=== PATIENT | female | born 1945 | race Caucasian/White ===

== ENCOUNTER 2016-12-30 18:34 | Inpatient (IN) | payer MEDICARE, OTHER ==
--- NOTE | ~2016-12-30 | DS ---
Unit #: [id number] #: [id number] Patient: BERENICE MUÑIZ [id number] [address] [place], [place] [address] [id number] I MR#: [id number] NAME: BERENICE MUÑIZ. ROOM: 324 Age: 71 Sex: F Admission Date: 12/30/2016 : 1945 Discharge Date: 01/06/2017 Attending Physician: Winston Bernal M.D. Referring Physician: Christine Greenfield A.P.R.N. Primary Care Physician: Christine Greenfield A.P.R.N. DISCHARGE SUMMARY CONSULTING PHYSICIAN Dr. Bowie with GI. CONDITION ON DISCHARGE Stable. FINAL DIAGNOSES 1. Chronic hypoxemic respiratory failure on 3 L nasal cannula at home. 2. Acute exacerbation of chronic obstructive pulmonary disease. 3. Anemia, which is likely chronic. 4. Positive occult blood and was evaluated by Dr. Bowie, although he did not proceed with a colonoscopy. 5. Hyperglycemia, likely steroid induced. DIAGNOSTIC STUDIES LABORATORY: Laboratory data on the day of discharge: CBC revealed a white blood cell count of 14.6, hemoglobin 8.4 which is stable from yesterday, and platelets of 302,000. Sputum culture was collected and still with no growth. Blood cultures x2 are collected with no growth. IMAGING: X-ray of the ribs was done this morning. Per radiology report, no fractures were seen. HOSPITAL COURSE The patient was admitted on December 30, 2016, after coming through the ER with worsening shortness of air and severe trouble breathing accompanied with a cough and chest pain. Cough was productive of yellow sputum. She was already on a steroid taper at home upon admission. Rapid flu in the ER was negative. D-dimer was mildly elevated, so V/Q scan was done. That did not suggest pulmonary embolism. Bilateral lower extremity Dopplers were done that were negative for DVTs. Procalcitonin was low at less than 0.05. The patient was started on IV antibiotics, Zithromax, cefepime. Sputum and blood cultures were obtained, both of which were negative. The patient was also started on IV steroids which have been weaned to p.o. An echo was done on December 31 that revealed an EF of 15% to 20%. She does follow with cardiology. The occult blood came back positive and GI saw the patient on January 02; however, they determined that the patient was a poor surgical candidate for colonoscopy and therefore did not proceed with colonoscopy. Hemoglobin has been stable at 8.4 for the last two days and was 8.1 on admission. GI signed off on January 04. Yesterday on January 05, the patient apparently fall into the handrail in the bathroom and was having some right-sided chest pain. An x-ray was done of her ribs to rule out fracture and per radiology reading, there were no fractures noted on x-ray. The patient will now be discharged today on p.o. prednisone Unit #: [id number] #: [id number] Patient: BERENICE MUÑIZ taper. PHYSICAL EXAMINATION VITAL SIGNS: On day of discharge, temperature was 97.8, heart rate 78, respirations 22, blood pressure 160/85, oxygen saturation is 100% on 3 L nasal cannula which is her home amount of O2. GENERAL: The patient is in no acute distress, sitting up in the bed. NEUROLOGIC: She is awake, alert and oriented x3. HEENT: Without adenopathy and without JVD. LUNGS: Have mild expiratory wheezing and rhonchi; however, respirations are unlabored. CARDIOVASCULAR: Regular rate and rhythm. ABDOMEN: Soft, round, nontender with positive bowel sounds. EXTREMITIES: Without edema. SKIN: Without lesions or rashes. DISCHARGE MEDICATIONS The patient will be sent home on a prednisone taper. DISCHARGE INSTRUCTIONS We would like the patient to follow up with her PCP on Tuesday to have her blood pressure checked, to check a H and H, and to follow up with her blood sugar which has likely been elevated due to steroids. We would also like for her to follow up with us in our office in approximately three weeks. If anything changes, then she has been instructed to call prior to that. We have also instructed her to go ahead and make another followup appointment with Dr. Kong which she missed while she has been hospitalized this week. Dictated byCharlie Rangel APRN AT/dede TD: 01/07/2017 09:48 JOB #: [id number] DISCHARGE SUMMARY X Abby GALLAGHER SUMMARY
--- NOTE | ~2016-12-30 | US84 ---
[id number] [facility] [address] [place], [place] [address] [id number] I MR#: [id number] Acc #: [id number] NAME: BERENICE MUÑIZ : 1945 SEX: F STUDY DATE/TIME: 12/31/2016 9:10 UNIT: C3A PCU ROOM: 324 STUDY DESCRIPTION: US LE Veins Complete Rick Stdy Attending Physician: Winston Bernal M.D. Referring Physician: Christine Greenfield A.P.R.N. Ordering Physician: Winston Bernal M.D. Primary Care Physician: Christine Greenfield A.P.R.N. MEDICAL IMAGING REPORT This report is preliminary unless electronic signature is present EXAM Venous Doppler ultrasound, both legs, 12/31/2016 HISTORY 71-year-old female with pulmonary emphysema and chronic shortness of air, recently worsening. Now with hypotension. TECHNIQUE Venous ultrasound examination of both lower extremities was performed using grayscale, spectral Doppler and color flow Doppler imaging. FINDINGS The examination is negative. There is no evidence of deep venous thrombus from the groin to the lower calf bilaterally. Visualized greater saphenous veins are also patent. IMPRESSION Negative examination. No evidence of bilateral lower extremity deep venous thrombosis. Dictated by... Drake Vallecillo M.D. THIS IS AN ELECTRONICALLY VERIFIED REPORT Drake Vallecillo M.D. at 12/31/2016 4:53 PM Lakshmi TD: 12/31/2016 12:58 JOB #: [id number] MEDICAL IMAGING REPORT COPY
--- NOTE | ~2016-12-30 | CR72 ---
[facility] A Service of [facility] & [facility] RADIOLOGY TEXT RESULTS PATIENT: BERENICE MUÑIZ LOCATION: [facility] 324-01 : [birth year] UNIT #: [id number] AGE: [address]: Adan Bernal MD SEX: F ORDER DR: [id number] [facility] [address] [place], [place] [address] [id number] E MR#: [id number] Acc #: [id number] NAME: BERENICE MUÑIZ. : 1945 SEX: F STUDY DATE/TIME: 12/30/2016 18:26 UNIT: [facility] ROOM: STUDY DESCRIPTION: CR Chest Single View Portable Attending Physician: Christine Velazquez M.D. Referring Physician: Christine Greenfield A.P.R.N. Ordering Physician: Christine Velazquez M.D. Primary Care Physician: Christine Greenfield A.P.R.N. MEDICAL IMAGING REPORT This report is preliminary unless electronic signature is present EXAM Portable chest. DATE OF EXAM 12/30/2016 HISTORY 71-year-old female with shortness of air and cough today. COMPARISON Chest, 11/10/2016. FINDINGS Frontal chest demonstrates clear lungs. No pleural effusion or pneumothorax. Heart size and mediastinum within normal limits. Pulmonary vasculature is unremarkable. Small hiatal hernia. IMPRESSION No acute cardiopulmonary findings. Small hiatal hernia. Dictated by... Ruben Bucio M.D. THIS IS AN ELECTRONICALLY VERIFIED REPORT Ruben Bucio M.D. at 12/31/2016 9:19 AM ZITA/sathya TD: 12/30/2016 23:52 JOB #: [id number] MEDICAL IMAGING REPORT COPY
--- NOTE | ~2016-12-30 | CO ---
Unit #: [id number] #: [id number] Patient: BERENICE MUÑIZ [id number] [address] [place], [place] [address] [id number] I MR#: [id number] NAME: BERENICE MUÑIZ ROOM: 324 Age: 71 Sex: F Admission Date: 12/30/2016 : 1945 Attending Physician: Winston Bernal M.D. Primary Care Physician: Christine Greenfield A.P.R.N. Consultation Date: 01/02/2017 CONSULTATION REPORT REASON FOR CONSULTATION Possible gastrointestinal bleed. HISTORY OF PRESENT ILLNESS Ms. Harris is a 71-year-old white female. She is quite frail and has severe COPD. The patient was admitted with acute exacerbation of COPD and upon admission, also found to have anemia. She is currently getting packed cell transfusions. The patient denies any history of overt GI bleed in the form of hematemesis, melena, or hematochezia, but her stool studies are positive for occult blood. It is noteworthy that she had an upper endoscopy for dysphagia about 3 weeks ago. She denies any history of weight loss. There is no history of fever, chills, or rigors. PAST MEDICAL HISTORY Significant for history of COPD; congestive heart failure; chronic anemia, status post chemo and radiation treatments; degenerative disk disease; osteoporosis with compression fractures; chronic respiratory failure, on 2 L nasal cannula. PAST SURGICAL HISTORY Included a kyphoplasty, right knee surgery, cataract extraction surgery, carpal tunnel release surgery, hysterectomy, bladder suspension repair, breast lumpectomy, and spinal fusions. MEDICATIONS At home included the following; Celexa, Flexeril, Lasix, metoprolol, Neurontin, Daliresp, Col-Rite, vitamin D, Singulair, Zyban, prednisone taper, lidocaine topical patch, Combivent, Pulmicort, Perforomist, [place], Humibid, Zestril, Zofran, Aldactone, Lipitor, pantoprazole, Flomax, Bactrim daily. ALLERGIES To morphine and ciprofloxacin. SOCIAL HISTORY The patient quit smoking about 5 years ago. Used to have more than 100 elle-peik-lrmswmd of smoking. Does not drink any alcohol. She walks around with a walker. Lives at home with her . FAMILY HISTORY There is history of lung disease in other siblings. There is no family history of colon, pancreatic cancer, or liver disease. REVIEW OF SYSTEMS Unit #: [id number] #: [id number] Patient: BERENICE MUÑIZ A Detailed review of organ systems does not reveal any recent weight loss. No history of fever, chills, or rigors. No history of headache, seizures, chest pain, or syncope. There is history of shortness of breath and cough, but no expectoration. No history of dysuria, hematuria, or pyuria. No history of focal seizures or extremity weakness. Rest of the review of organ systems is unremarkable. PHYSICAL EXAMINATION GENERAL: She is alert and oriented, and comfortable. VITAL SIGNS: Stable with a temperature of 97.6, pulse is 75 per minute and regular, respirations 20, and blood pressure is 150/65. HEENT: She has zvny-lq-tcqthtfm pallor. There being no icterus, lymphadenopathy, or peripheral edema. CARDIOVASCULAR: Reveal normal heart sounds. No murmurs on auscultation. LUNGS: Reveal bilateral diminished symmetric air entry along with expiratory wheeze. ABDOMEN: Soft and nontender. Liver and spleen are not palpable. Bowel sounds normal. DIAGNOSTIC STUDIES LABORATORY RESULTS: Shows an admission hemoglobin on 12/30/2016 of 9.4 and today hemoglobin is 7.7. It is noteworthy that the patient's hemoglobin in the past has hovered around 9 at the most. BUN and creatinine are 19 and 1.7. Albumin is 3.2. LFTs are normal. Ferritin is 287. Iron studies were done in 2016 and were suggestive of anemia of chronic disease. B12 and folate levels were normal. The patient's stool studies for occult blood are positive. CLINICAL IMPRESSION The patient does have anemia most likely of chronic disease, even though she has Hemoccult-positive stools and ideally should have a colonoscopy. She has a high surgical risk both for colonoscopy or for any operative intervention. Upper endoscopy was done about a month ago. Suggest to monitor hemoglobin and hematocrit and transfuse packed cells as needed and supportive care. The risk of colonoscopy outweighs its benefits at least for now. We will review the patient again tomorrow. Thank you for asking me to see this pleasant woman. I appreciate the consult. Dictated by.Effie. Raymon Bowie M.D. GEOVANNA/merrick TD: 01/02/2017 21:07 JOB #: [id number] CC: Mark Dominguez M.D. Unit #: [id number] #: [id number] Patient: BERENICE MUÑIZ Tim CONSULTATION REPORT X Raymon Bowie MD X CONSULTATION REPORT
--- NOTE | ~2016-12-30 | CR72 ---
[facility] A Service of [facility] & [facility] RADIOLOGY TEXT RESULTS PATIENT: BERENICE MUÑZI LOCATION: [facility] 324-01 : [birth year] UNIT #: [id number] AGE: [address]: Adan Bernal MD SEX: F ORDER DR: [id number] [facility] [address] [place], [place] [address] [id number] I MR#: [id number] Acc #: [id number] NAME: BERENICE MUÑIZ. : 1945 SEX: F STUDY DATE/TIME: 12/31/2016 03:37 UNIT: [address] ROOM: [facility] STUDY DESCRIPTION: CR Chest Single View Portable Attending Physician: Winston Bernal M.D. Referring Physician: Christine Greenfield A.P.R.N. Ordering Physician: Winston Bernal M.D. Primary Care Physician: Christine Greenfield A.P.R.N. MEDICAL IMAGING REPORT This report is preliminary unless electronic signature is present EXAM Portable chest, 12/31 at 03:37 INDICATION Shortness of air, sepsis, cough, hypotension. History of lung cancer. FINDINGS AP portable chest is compared with 12/30/2016. Cardiomegaly is stable. There is emphysema. No acute infiltrates are identified. Hiatal hernia is again seen. No pneumothorax. Granulomatous calcifications noted in the right paratracheal region. Atherosclerotic disease noted in the aorta. IMPRESSION Cardiomegaly and emphysema with a stable hiatal hernia. No acute findings in the chest. Dictated by... Yan Weldon Jr., M.D. THIS IS AN ELECTRONICALLY VERIFIED REPORT Yan Weldon Jr., M.D. at 01/03/2017 7:20 AM YAAKOV/audrey TD: 12/31/2016 08:27 JOB #: [id number] MEDICAL IMAGING REPORT COPY
--- NOTE | ~2016-12-30 | HP ---
Unit #: [id number] #: [id number] Patient: BERENICE MUÑIZ [id number] [address] [place], [place] [address] [id number] I MR#: [id number] NAME: BERENICE MUÑIZ ROOM: 324 Age: 71 Sex: F Admission Date: 12/30/2016 : 1945 Attending Physician: Winston Bernal M.D. Referring Physician: Christine Greenfield A.P.R.N. Primary Care Physician: Christine Greenfield A.P.R.N. HISTORY AND PHYSICAL HISTORY OF PRESENT ILLNESS This is a pleasant lady who came into the emergency room with worsening shortness of air and severe trouble breathing, coughing, chest pain. She has a history of congestive heart failure. She has a history of COPD. The patient was having a lot of cough productive of yellow sputum. Patient was on Bactrim prior to admitting. She was also on a prednisone taper. She was admitted to the hospital for congestive heart failure. Patient denies fevers, chills, chest pain, leg pain, dizziness, lightheadedness. She did have a history of dizziness and tunnel vision last week but none recently. The patient was placed on cefepime and azithromycin and admitted to the floor. REVIEW OF SYSTEMS A full review of systems is positive for what is in the history of present illness. PAST MEDICAL HISTORY The past medical history is significant for COPD exacerbation, degenerative disc disease, chronic anemia, chemo and radiation treatment by Dr. Cha, osteoporosis with compression fractures, chronic respiratory failure on 2 L nasal cannula. PAST SURGICAL HISTORY Significant for kyphoplasty, right knee surgery, cataract surgery, carpal tunnel surgery, hysterectomy, bladder repair, lumpectomy and spinal fusions. HOME MEDICATIONS Home medications include: 1. Celexa 20 mg daily. 2. Flexeril 10 mg p.o. t.i.d. 3. Lasix 20 mg daily. 4. Metoprolol 25 mg b.i.d. 5. Neurontin 300 mg b.i.d. 6. Daliresp 500 mcg daily. 7. Col-Rite 100 mg daily. 8. Vitamin D 50,000 unit daily. 9. Singulair 10 mg daily. 10. Zyban 150 mg b.i.d. 11. Prednisone 10 mg daily on a taper. 12. Lidocaine topical patch 5% daily. 13. Combivent 3 mL inhaled q.i.d. 14. Pulmicort 0.5 mg q.12 h. Unit #: [id number] #: [id number] Patient: BERENICE MUÑIZ 15. Perforomist 20 mcg b.i.d. 16. [place] 10/325 q.6 h. p.r.n. 17. Humibid LA 600 mg p.o. b.i.d. 18. Zestril 5 mg daily. 19. Zofran 4 mg q.4 h. p.r.n. 20. Aldactone 25 mg daily. 21. Combivent one tablet daily. 22. Lipitor daily. 23. Pantoprazole sodium 40 mg daily. 24. Flomax 0.4 mg daily. 25. Omeprazole 20 mg b.i.d. 26. Bactrim tablet one tablet daily. PHYSICAL EXAMINATION VITAL SIGNS: T-current 98.6, pulse 88, respiratory rate 20, blood pressure 135/73. Ins and outs 375 in, not recorded out. HEENT: Extraocular movements are intact. Pupils equal, round and reactive to light. NECK: Shows no accessory muscle use, approximately 17 inches in circumference. CHEST: Decreased breath sounds bilaterally. CARDIOVASCULAR EXAM: Regular rate and there is no gallop. EXTREMITIES: The extremities show kind of decreased pulses both in radial and DP and PT. ABDOMEN: Abdomen is soft, nontender and nondistended. DIAGNOSTIC STUDIES IMAGING: Bilateral lower extremities negative examination for DVT bilaterally. V/Q scan is low to intermediate probability with significant emphysema. LABORATORY: D-dimer is positive at 800. BNP is 59. Procalcitonin is less than 0.05. Lactic acid is 0.9. Urinalysis 2+ leukocyte esterase. IMAGING: Chest x-ray shows no acute cardiopulmonary findings. ASSESSMENT AND PLAN Treat for chronic obstructive pulmonary disease exacerbation. Patient I think is probably dry rather than wet at this time so we are going to encourage her p.o. Patient was on IV fluid but we are going to discontinue it and we are going to do no fluid restrictions and we are holding her diuretics for another day to begin again tomorrow. Dictated by Winston Bernal M.D. SARAHI/clark TD: 12/31/2016 21:31 JOB #: [id number] Unit #: [id number] #: [id number] Patient: BERENICE MUÑIZ HISTORY AND PHYSICAL X Adan Bernal MD X HISTORY AND PHYSICAL
--- NOTE | ~2016-12-30 | CR211 ---
[facility] A Service of [facility] RADIOLOGY TEXT RESULTS PATIENT: BERENICE MUÑIZ LOCATION: [facility] 324- : [birth year] UNIT #: [id number] AGE: [address]: Adan Bernal MD SEX: F ORDER DR: [id number] [facility] [address] [place], [place] [address] [id number] I MR#: [id number] Acc #: [id number] NAME: BERENICE MUÑIZ : 1945 SEX: F STUDY DATE/TIME: 01/06/2017 7:52 UNIT: [address] ROOM: [facility] STUDY DESCRIPTION: CR Ribs Uni 2 View W PA Ch Rt Attending Physician: Winston Bernal M.D. Referring Physician: Christine Greenfield A.P.R.N. Ordering Physician: Winston Bernal M.D. Primary Care Physician: Christine Greenfield A.P.R.N. MEDICAL IMAGING REPORT This report is preliminary unless electronic signature is present EXAM PA chest and right ribs HISTORY Pain in right lower rib 2 days ago, fell in bathroom. TECHNIQUE An AP view of the chest and AP and oblique of the right ribs are obtained. FINDINGS Chest radiograph shows cardiac enlargement. AP and oblique views of the right ribs show marked osteopenia. No definite fracture is seen. CONCLUSION Stable cardiomegaly. Osteopenia and no definite fractures. Dictated by... Sacha Schofield M.D. THIS IS AN ELECTRONICALLY VERIFIED REPORT Sacha Schofield M.D. at 01/12/2017 7:58 AM KRYSTLE/dontrell TD: 01/06/2017 12:13 JOB #: [id number] MEDICAL IMAGING REPORT COPY
--- NOTE | ~2016-12-30 | EKG ---
PATIENT: BERENICE MUÑIZ UNIT #: [id number] Ventricular Rate: 76 BPM Atrial Rate: 76 BPM P-R Interval: 150 ms QRS Duration: 94 ms Q-T Interval: 424 ms QTC Calculation(Bezet): 477 ms P Holland: 14 degrees Calculated R Holland: 21 degrees Calculated T Holland: 108 degrees Diagnosis Line: Sinus rhythm with occasional Premature ventricular Diagnosis Line: complexes Diagnosis Line: ST and T wave abnormality, consider lateral ischemia Diagnosis Line: Prolonged QT Diagnosis Line: Abnormal ECG Diagnosis Line: When compared with ECG of 01-NOV-2016 12:16, Diagnosis Line: Premature ventricular complexes are now Present Diagnosis Line: T wave inversion less evident in Anterior leads Diagnosis Line: Confirmed by UMAIR TIRADO MD ([id number]) on 12/31/2016 Diagnosis Line: 5:16:10 PM INTERPRETING MD: CELESTINO KELSEY
--- NOTE | ~2016-12-30 | NM69 ---
[facility] A Service of [facility] RADIOLOGY TEXT RESULTS PATIENT: BERENICE MUÑIZ LOCATION: [facility] 324-01 : [birth year] UNIT #: [id number] AGE: [address]: Adan Bernal MD SEX: F ORDER DR: [id number] [facility] [address] [place], [place] [address] [id number] I MR#: [id number] Acc #: [id number] NAME: BERENICE MUÑIZ. : 1945 SEX: F STUDY DATE/TIME: 12/31/2016 11:11 UNIT: [address] ROOM: [facility] STUDY DESCRIPTION: NM Pulm Vent and Perf Attending Physician: Winston Bernal M.D. Referring Physician: Christine Greenfield A.P.R.N. Ordering Physician: Winston Bernal M.D. Primary Care Physician: Christine Greenfield A.P.R.N. MEDICAL IMAGING REPORT This report is preliminary unless electronic signature is present EXAM Ventilation-perfusion lung scan, 12/31/2016 HISTORY 71-year-old female with several month history of shortness of air, now with sepsis, decreased blood pressure. Prior history of lung cancer. DOSE 29.5 mCi Technetium labeled DTPA inhaled in aerosol. 4.88 mCi Technetium labeled MAA administered intravenously. COMPARISON No previous radionuclide lung scans. CT chest, 07/27/2016. Chest x-ray, 12/31/2016. FINDINGS Ventilation images show extensive multifocal abnormality throughout both lungs compatible with the patient's history of diffuse pulmonary emphysema, best demonstrated on the prior chest CT. Perfusion images show significantly less severe multifocal abnormalities, and these correspond with more severe abnormalities on ventilation scan. No unmatched perfusion defect is identified to suggest pulmonary embolism. However, the accuracy of the test is likely significantly decreased due to the patient's diffuse lung disease. IMPRESSION 1. Severe diffuse pulmonary emphysema causing diffuse abnormality, particularly on ventilation images. This reduces the accuracy of this exam. 2. No unmatched perfusion defect is identified to suggest pulmonary embolism. Findings are felt to represent a low probability of PE. [facility] A Service of [facility] RADIOLOGY TEXT RESULTS PATIENT: BERENICE MUÑIZ LOCATION: [facility] 324-01 : [birth year] UNIT #: [id number] AGE: [address]: Adan Bernal MD SEX: F ORDER DR: STAT * RESULT Dictated by... Drake Vallecillo M.D. THIS IS AN ELECTRONICALLY VERIFIED REPORT Drake Vallecillo M.D. at 12/31/2016 4:53 PM Lakshmi TD: 12/31/2016 11:13 JOB #: [id number] MEDICAL IMAGING REPORT COPY
--- NOTE | ~2016-12-30 | CR63 ---
[facility] A Service of [facility] & [facility] RADIOLOGY TEXT RESULTS PATIENT: BERENICE MUÑIZ LOCATION: [facility] 324- : [birth year] UNIT #: [id number] AGE: [address]: Adan Bernal MD SEX: F ORDER DR: [id number] [facility] [address] [place], [place] [address] [id number] I MR#: [id number] Acc #: [id number] NAME: BERENICE MUÑIZ. : 1945 SEX: F STUDY DATE/TIME: 01/05/2017 7:32 UNIT: [address] ROOM: [facility] STUDY DESCRIPTION: CR Chest 2 View Attending Physician: Adan Bernal Referring Physician: Christine Greenfield A.P.R.N. Ordering Physician: Adan Bernal Primary Care Physician: Christine Greenfield A.P.R.N. MEDICAL IMAGING REPORT This report is preliminary unless electronic signature is present EXAM PA and lateral chest. HISTORY Cough and shortness of air for six days. COMPARISON 12/31/2016 FINDINGS PA and lateral view of the chest were obtained. There are low lung volumes and the patient is kyphotic. There is a mid thoracic spine compression fracture which is unchanged from 11/06/2016. The lungs are clear. IMPRESSION Kyphosis with old mid thoracic spine compression fracture. No active disease. Dictated by... Irineo Guerrero M.D. THIS IS AN ELECTRONICALLY VERIFIED REPORT Irineo Guerrero M.D. at 01/05/2017 2:05 PM ELIJAH/norman TD: 01/05/2017 11:00 JOB #: [id number] MEDICAL IMAGING REPORT COPY
[2016-12-30 18:31] LABS: BASOPHIL% 0.3 % (0-2.5); EOSINOPHIL# 0.2 X10e3 (0-0.7); EOSINOPHIL% 2.5 % (0.0-7.0); HEMATOCRIT 28.9 % (35.0-45.0); HEMOGLOBIN 9.4 gm/dL (12.0-16.0); LYMPHOCYTE# 2.8 X10e3 (1.0-3.5); MEAN CELL VOLUME 84.1 FL (83-96); MEAN CORPUSCULAR HEMOGLOBIN 27.3 PG (28-34); MEAN CORPUSCULAR HGB CONC 32.4 g/dL (30-36); MEAN PLATELET VOLUME 7.1 FL (6.5-11.5); MONOCYTE% 10.2 % (3.0-12.0); NEUTROPHIL# 5.7 X10e3 (1.5-7.1); PLATELET COUNT 435 X10e3 (140-420); RED BLOOD COUNT 3.44 X10e (3.90-5.30); RED CELL DISTRIBUTION WIDTH 18.5 % (11.0-15.5); WHITE BLOOD COUNT 9.8 X10e3 (4.0-10.5)
[2016-12-30 18:32] LABS: DIFF IND NO
[2016-12-30 18:34] LABS: POC - CKMB 1.1 ng/mL (0.0-7.9); POC - TROPONIN <0.05 ng/mL (<=0.05)
[~2016-12-30 18:34] MED LIST: ACTONEL PO; ACTONEL30 MG PO; ADVAIR 250-501 EACH INH; ADVAIR 500-501 EACH IH; ADVAIR 5001 DISK W/D PO; ALB/IPRATROPIUM/1 E1 INH; ALBUTEROL17 GM INH; AMLODIPINE BESYL5 MG PO; AMOXICILLIN875 MG PO; AZITHROMYCIN500 MG PO; CALCIUM500 MG PO; CEFACLOR250 MG PO; CEFDINIR300 MG PO; CELEBREX PO; CELEXA PO; CELEXA20 MG PO; CERTAGEN PO; CITALOPRAM HBR40 MG PO; COL-RITE50 MG PO; COLACE PO; COMBIVENT INH14.7 GM INH; COMBIVENT INHALER; COMBIVENT RESPIM4 GM IH; COMBIVENT U/D3 M1 INH; COMBIVENT U/D3 M4 INH; COMBIVENT14.7 GM INH; DALIRESP500 MCG PO; DEXAMETHASONE4 MG PO; DUONEB 2.5-0.5 M3 ML NEB; DYAZIDE 37.5/251 CAP PO; FELDENE20 MG PO; FISH OIL 1,0001 CAP PO; FLAGYL PO; FLEXERIL PO; FLEXERIL10 MG PO; FLONASE 0.05% N16 GM; FLONASE16 GM; FLOVENT DI50 MCG/DIS IH; GABAPENTIN300 M2 PO; HUMIBID-LA600 MG PO; IBUPROFEN800 MG PO; LASIX PO; LASIX20 MG PO; LEVAQUIN PO; LEVAQUIN750 MG PO; LIDOCAINE 5% TOP; LIDODERM30 EA TOP; LIPITOR PO; LORTAB 101 TAB 10/5 PO; LOVASTATIN20 M1 PO; MAXZIDE 37.5 M1 EACH PO; METAXALONE800 MG PO; METHOCARBAMOL500 MG PO; METOPROLOL TAR25 MG PO; METOPROLOL TART25 MG PO; MEVACOR PO; MONTELUKAST SOD10 MG PO; MUCINEX D ER T1 EACH PO; MUCINEX DM1 TAB.SR . PO; MULTIVITAMIN1 UDCAP PO; NEURONTIN300 MG PO; NEXIUM 24HR20 MG PO; NEXIUM PO; NICOTROL INH; NILSTAT PO; NORCO 10-325 TA1 TAB PO; NORCO1 TAB 10/3 PO; NORVASC PO; NORVASC10 MG PO; OMEPRAZOLE20 M2 PO; OMEPRAZOLE40 M1 PO; OMEPRAZOLE40 MG PO; OMNICEF300 M1 PO; PERCOCET 5/321 UDTAB PO; PERCOCET PO; PERFOROMIS20 MCG/2 M INH; PREDNISONE PO; PREDNISONE1 MG PO; PREDNISONE10 MG PO; PREDNISONE10 MG/DOSE PO; PULMICORT0.5 MG/2 M INH; SINGULAIR PO; SYMBICORT INH; TRIAMTERENE-HCT1 TA6 PO; TRIAMTERENE-HCT1 TA8 PO; TUDORZA PRESS400 MCG IH; VENTOLIN INHALER; VIBRAMYCIN100 M1 PO; VITAMIN C500 M1 PO; VITAMIN D250000 UNIT PO; VITAMIN D50000 UNIT PO; WELLBUTRIN PO; WELLBUTRIN SR150 MG PO; WELLBUTRIN XL PO; WELLBUTRIN XL150 M1 PO; ZESTRIL5 MG PO; ZOFRAN PO; hydrocodone
[2016-12-30 18:41] LABS: INFLUENZA A NEG (NEG); INFLUENZA B NEG (NEG)
[2016-12-30 18:58] LABS: BUN/CREATININE RATIO 11.17; CALCIUM SERUM 8.7 mg/dL (8.4-10.2); CREATININE SERUM 1.7 mg/dL (0.6-1.4); GLOM FILT RATE Estimated 31.7 mL/min (>60); POTASSIUM 3.6 mmol/L (3.5-5.1)
[2016-12-30] MEDS ORDERED: ALDACTONE25 MG PO (19:29)
[2016-12-30] MEDS ORDERED: COMBIVENT U/D3 ML INH (19:30)
[2016-12-30] MEDS ORDERED: LIPITOR PO (19:30)
[2016-12-30] MEDS ORDERED: OMEPRAZOLE20 M2 PO (19:31)
[2016-12-30] MEDS ORDERED: PANTOPRAZOLE SO40 MG PO (19:31)
[2016-12-30] MEDS ORDERED: FLOMAX0.4 M1 PO (19:31)
[2016-12-30] MEDS ORDERED: BACTRIM DS TABL1 TA1 PO (19:32)
[2016-12-30 20:17] LABS: URINE SOURCE CLEAN CATCH
[2016-12-30 20:38] LABS: URINE APPEARANCE CLEAR; URINE BILIRUBIN NEG (NEG); URINE BLOOD NEG (NEG); URINE COLOR YELLOW; URINE GLUCOSE NEG (NEG); URINE KETONE TRACE (NEG); URINE LEUKOCYTE ESTERASE 2+ (NEG); URINE NITRATE NEG (NEG); URINE PH 5.5 (5-8); URINE PROTEIN NEG (NEG); URINE UROBILINOGEN 0.2 MG/DL (NEG)
[2016-12-30 20:44] LABS: U HYALINE CASTS AUWI 0-2 /[LPF]; URBCS1 AUWI 0-2 /[HPF] (0-2); URINE BACTERIA AUWI NEG (NEGATIVE); URINE SQUAMOUS EPITHELIAL CELL OCC /[HPF]
[2016-12-30 20:50] LABS: UWBCS1 AUWI 0-2 (0-5)
[2016-12-30 20:51] LABS: CULTURE INDICATED? NO
[2016-12-30 22:59] LABS: POC - CKMB <1.0 ng/mL (0.0-7.9); POC - TROPONIN <0.05 ng/mL (<=0.05)
[2016-12-31 03:53] LABS: BASOPHIL% 0.2 % (0-2.5); HEMATOCRIT 24.9 % (35.0-45.0); HEMOGLOBIN 8.1 gm/dL (12.0-16.0); LYMPHOCYTE# 0.3 X10e3 (1.0-3.5); LYMPHOCYTE% 6.6 % (17.0-45.0); MEAN CELL VOLUME 85.2 FL (83-96); MEAN CORPUSCULAR HEMOGLOBIN 27.5 PG (28-34); MEAN CORPUSCULAR HGB CONC 32.3 g/dL (30-36); MEAN PLATELET VOLUME 7.1 FL (6.5-11.5); MONOCYTE# 0.1 X10e3 (0-1.0); NEUTROPHIL# 4.8 X10e3 (1.5-7.1); NEUTROPHIL% 92.2 % (40-75); PLATELET COUNT 339 X10e3 (140-420); RED BLOOD COUNT 2.93 X10e (3.90-5.30); WHITE BLOOD COUNT 5.2 X10e3 (4.0-10.5)
[2016-12-31 03:59] LABS: DIFF IND NO
[2016-12-31 04:17] LABS: ALBUMIN SERUM 3.2 g/dL (3.5-5.0); BILIRUBIN,TOTAL 0.2 mg/dL (0.2-2.0); BUN/CREATININE RATIO 16.66; CREATININE SERUM 1.2 mg/dL (0.6-1.4); GLOM FILT RATE Estimated 47.3 mL/min (>60); POTASSIUM 4.7 mmol/L (3.5-5.1); PROTEIN TOTAL SERUM 5.6 g/dL (6.0-8.3)
[2016-12-31] MEDS ORDERED: ZOFRAN PO (04:44)
[2016-12-31] MEDS ORDERED: PRILOSEC PO (04:48)
[2016-12-31] MEDS ORDERED: GUAIFENESIN LA600 M1 PO (04:56)
[2016-12-31] MEDS ORDERED: NORCO 10/3251 TAB PO (05:06)
[2016-12-31] MEDS ORDERED: PERFOROMIS20 MCG/2 M INH (05:08)
[2016-12-31] MEDS ORDERED: PULMICORT0.5 MG/21 INH (05:11)
[2016-12-31] MEDS ORDERED: LISINOPRIL5 MG PO (05:13)
[2016-12-31] MEDS ORDERED: ALB/IPRATROPIUM/1 EA INH (05:17)
[2016-12-31] MEDS ORDERED: LIDODERM30 EA TOP (05:19)
[2016-12-31] MEDS ORDERED: SINGULAIR PO (05:21)
[2016-12-31] MEDS ORDERED: BUPROPION XL150 MG PO (05:23)
[2016-12-31] MEDS ORDERED: DOCUSATE SODIU100 MG PO (05:24)
[2016-12-31] MEDS ORDERED: DALIRESP500 MCG PO (05:26)
[2016-12-31] MEDS ORDERED: METOPROLOL TAR25 MG PO (05:27)
[2016-12-31] MEDS ORDERED: GABAPENTIN300 M2 PO (05:28)
[2016-12-31] MEDS ORDERED: CELEXA20 MG PO (05:29)
[2016-12-31] MEDS ORDERED: FLEXERIL10 MG PO (05:30)
[2016-12-31] MEDS ORDERED: FUROSEMIDE40 MG/4 ML PO (05:31)
[2017-01-01 05:55] LABS: BASOPHIL% 0.1 % (0-2.5); HEMATOCRIT 24.7 % (35.0-45.0); LYMPHOCYTE# 0.8 X10e3 (1.0-3.5); MEAN CELL VOLUME 84.2 FL (83-96); MEAN CORPUSCULAR HEMOGLOBIN 27.3 PG (28-34); MEAN CORPUSCULAR HGB CONC 32.5 g/dL (30-36); MEAN PLATELET VOLUME 7.5 FL (6.5-11.5); MONOCYTE# 0.3 X10e3 (0-1.0); NEUTROPHIL# 9.9 X10e3 (1.5-7.1); NEUTROPHIL% 89.9 % (40-75); PLATELET COUNT 347 X10e3 (140-420); RED BLOOD COUNT 2.93 X10e (3.90-5.30); RED CELL DISTRIBUTION WIDTH 18.4 % (11.0-15.5)
[2017-01-01 05:59] LABS: DIFF IND NO
[2017-01-01 06:33] LABS: CALCIUM SERUM 8.1 mg/dL (8.4-10.2); GLOM FILT RATE Estimated 58.4 mL/min (>60); POTASSIUM 5.2 mmol/L (3.5-5.1)
[2017-01-02 06:01] LABS: HEMATOCRIT 23.8 % (35.0-45.0); HEMOGLOBIN 7.7 gm/dL (12.0-16.0); MEAN CELL VOLUME 84.3 FL (83-96); MEAN CORPUSCULAR HEMOGLOBIN 27.3 PG (28-34); MEAN CORPUSCULAR HGB CONC 32.4 g/dL (30-36); MEAN PLATELET VOLUME 7.3 FL (6.5-11.5); RED BLOOD COUNT 2.82 X10e (3.90-5.30); RED CELL DISTRIBUTION WIDTH 18.8 % (11.0-15.5)
[2017-01-02 06:38] LABS: BLOOD UREA NITROGEN 27 mg/dL (9-23); CALCIUM SERUM 8.6 mg/dL (8.4-10.2); CARBON DIOXIDE 27 mmol/L (22-31); CHLORIDE 103 mmol/L (100-111); CREATININE SERUM 0.9 mg/dL (0.6-1.4); GLOM FILT RATE Estimated ABOVE60 mL/min (>60); GLUCOSE FASTING 123 mg/dL (70-110); POTASSIUM 3.7 mmol/L (3.5-5.1); SODIUM 138 mmol/L (135-145)
[2017-01-03 06:14] LABS: HEMATOCRIT 31.3 % (35.0-45.0); MEAN CELL VOLUME 85.7 FL (83-96); MEAN CORPUSCULAR HEMOGLOBIN 27.5 PG (28-34); MEAN PLATELET VOLUME 7.8 FL (6.5-11.5); RED BLOOD COUNT 3.65 X10e (3.90-5.30); RED CELL DISTRIBUTION WIDTH 18.2 % (11.0-15.5)
[2017-01-03 07:12] LABS: ALBUMIN SERUM 3.5 g/dL (3.5-5.0); ALKALINE PHOSPHATASE 46 U/L (32-92); ALT (SGPT) 15 U/L (10-40); AST (SGOT) 17 U/L (10-42); BILIRUBIN,TOTAL 0.4 mg/dL (0.2-2.0); BLOOD UREA NITROGEN 26 mg/dL (9-23); CALCIUM SERUM 8.7 mg/dL (8.4-10.2); CARBON DIOXIDE 24 mmol/L (22-31); CHLORIDE 102 mmol/L (100-111); CREATININE SERUM 0.8 mg/dL (0.6-1.4); GLOM FILT RATE Estimated ABOVE60 mL/min (>60); GLUCOSE FASTING 146 mg/dL (70-110); POTASSIUM 3.4 mmol/L (3.5-5.1); PROTEIN TOTAL SERUM 6.2 g/dL (6.0-8.3); SODIUM 138 mmol/L (135-145)
[2017-01-04 08:57] LABS: HEMATOCRIT 27.8 % (35.0-45.0); HEMOGLOBIN 9.2 gm/dL (12.0-16.0); MEAN CELL VOLUME 85.2 FL (83-96); MEAN CORPUSCULAR HEMOGLOBIN 28.2 PG (28-34); MEAN CORPUSCULAR HGB CONC 33.2 g/dL (30-36); MEAN PLATELET VOLUME 7.6 FL (6.5-11.5); RED BLOOD COUNT 3.27 X10e (3.90-5.30); RED CELL DISTRIBUTION WIDTH 17.8 % (11.0-15.5); WHITE BLOOD COUNT 9.2 X10e3 (4.0-10.5)
[2017-01-04 09:43] LABS: ALBUMIN SERUM 3.4 g/dL (3.5-5.0); ALKALINE PHOSPHATASE 42 U/L (32-92); ALT (SGPT) 18 U/L (10-40); AST (SGOT) 15 U/L (10-42); BILIRUBIN,TOTAL 0.1 mg/dL (0.2-2.0); BLOOD UREA NITROGEN 21 mg/dL (9-23); CALCIUM SERUM 8.7 mg/dL (8.4-10.2); CARBON DIOXIDE 28 mmol/L (22-31); CHLORIDE 102 mmol/L (100-111); CREATININE SERUM 0.5 mg/dL (0.6-1.4); GLOM FILT RATE Estimated ABOVE60 mL/min (>60); GLUCOSE FASTING 99 mg/dL (70-110); POTASSIUM 3.7 mmol/L (3.5-5.1); PROTEIN TOTAL SERUM 5.4 g/dL (6.0-8.3); SODIUM 137 mmol/L (135-145)
[2017-01-05 05:58] LABS: HEMATOCRIT 26.2 % (35.0-45.0); HEMOGLOBIN 8.4 gm/dL (12.0-16.0); MEAN CELL VOLUME 85.4 FL (83-96); MEAN CORPUSCULAR HEMOGLOBIN 27.5 PG (28-34); MEAN CORPUSCULAR HGB CONC 32.2 g/dL (30-36); MEAN PLATELET VOLUME 7.4 FL (6.5-11.5); RED BLOOD COUNT 3.07 X10e (3.90-5.30); RED CELL DISTRIBUTION WIDTH 17.9 % (11.0-15.5); WHITE BLOOD COUNT 11.9 X10e3 (4.0-10.5)
[2017-01-05 07:09] LABS: ALBUMIN SERUM 2.9 g/dL (3.5-5.0); ALKALINE PHOSPHATASE 38 U/L (32-92); ALT (SGPT) 16 U/L (10-40); AST (SGOT) 13 U/L (10-42); BILIRUBIN,TOTAL 0.5 mg/dL (0.2-2.0); BLOOD UREA NITROGEN 22 mg/dL (9-23); BUN/CREATININE RATIO 31.42; CALCIUM SERUM 8.5 mg/dL (8.4-10.2); CARBON DIOXIDE 28 mmol/L (22-31); CHLORIDE 102 mmol/L (100-111); CREATININE SERUM 0.7 mg/dL (0.6-1.4); GLOM FILT RATE Estimated ABOVE60 mL/min (>60); GLUCOSE FASTING 109 mg/dL (70-110); IRON SERUM 21 ug/dL (28-170); POTASSIUM 4.4 mmol/L (3.5-5.1); PROTEIN TOTAL SERUM 4.8 g/dL (6.0-8.3); SODIUM 136 mmol/L (135-145); TOTAL IRON BINDING CAPACITY 243 ug/dL (269-535); TRANSFERRIN 174 mg/dL (192-382); TRANSFERRIN SATURATION 9 % (20-50)
[2017-01-06 06:41] LABS: HEMATOCRIT 26.2 % (35.0-45.0); HEMOGLOBIN 8.4 gm/dL (12.0-16.0); MEAN CELL VOLUME 85.2 FL (83-96); MEAN CORPUSCULAR HEMOGLOBIN 27.2 PG (28-34); MEAN CORPUSCULAR HGB CONC 31.9 g/dL (30-36); MEAN PLATELET VOLUME 7.3 FL (6.5-11.5); RED BLOOD COUNT 3.08 X10e (3.90-5.30); RED CELL DISTRIBUTION WIDTH 18.1 % (11.0-15.5); WHITE BLOOD COUNT 14.6 X10e3 (4.0-10.5)
[2017-01-06] MEDS ORDERED: PREDNISONE10 MG/DOSE (17:56)
[2017-07-30] MEDS ORDERED: PULMICORT0.25 MG/2 INH (21:14)
[2017-07-30] MEDS ORDERED: K-DUR20 ME1 PO (21:15)
[2017-07-30] MEDS ORDERED: VITAMIN D350000 UNIT PO (21:17)
[2017-07-30] MEDS ORDERED: FUROSEMIDE40 MG PO (21:18)
[2017-07-30] MEDS ORDERED: DALIRESP500 MCG PO (21:19)
[2017-07-30] MEDS ORDERED: TUDORZA PRESS400 MCG INH (21:19)
[2017-07-30] MEDS ORDERED: ATORVASTATIN CA10 MG PO (21:20)
[2017-07-30] MEDS ORDERED: WELLBUTRIN XL150 M2 (21:21)
[2017-07-30] MEDS ORDERED: FLEXERIL10 MG PO (21:22)
[2017-07-30] MEDS ORDERED: CELEXA20 MG PO (21:22)
[2017-07-30] MEDS ORDERED: DOCUSATE SODIU100 MG PO (21:23)
[2017-07-30] MEDS ORDERED: NEURONTIN300 MG PO (21:25)
[2017-07-30] MEDS ORDERED: HYDROCODON-ACE1 EAC5 PO (21:27)
[2017-07-30] MEDS ORDERED: LIDODERM1 EACH TD (21:29)
[2017-07-30] MEDS ORDERED: LOPRESSOR PO (21:30)
[2017-07-30] MEDS ORDERED: SINGULAIR PO (21:31)
[2017-07-30] MEDS ORDERED: MUCINEX1200 MG PO (21:32)
[2017-07-30] MEDS ORDERED: PROTONIX40 M1 PO (21:33)
[2017-07-30] MEDS ORDERED: ZOFRAN ODT4 M1 PO (21:33)
[2017-07-30] MEDS ORDERED: FELDENE20 MG PO (21:34)
[2017-07-30] MEDS ORDERED: FLOMAX0.4 M1 DOB (21:34)
[2017-07-30] MEDS ORDERED: PREDNISONE10 MG PO (21:40)
[2017-07-30] MEDS ORDERED: PROAIR RESPICL90 MCG (21:42)
[2017-07-30] MEDS ORDERED: PRILOSEC PO (21:43)
== END 2017-01-07 02:40 | disposition home or self-care (01) | DRG 189 ==
LOC: CED 18:34 → CEDOF 23:35 → C3A PCU 12-31 04:12
PROVIDERS: Emergency Medicine; Internal Medicine Gastroenterology; Internal Medicine Pulmonary Disease
PROC: 30233N1 Transfusion of Nonautologous Red Blood Cells into Peripheral Vein, Percutaneous Approach (ICD-10-PCS; principal; 2016-12-30)
PROC: B246YZZ Ultrasonography of Right and Left Heart using Other Contrast (ICD-10-PCS; 2016-12-31)
DX: J96.21 Acute and chronic respiratory failure with hypoxia (principal); I50.22 Chronic systolic (congestive) heart failure; J44.1 Chronic obstructive pulmonary disease with (acute) exacerbation; D63.8 Anemia in other chronic diseases classified elsewhere; R73.9 Hyperglycemia, unspecified; T38.0X5A Adverse effect of glucocorticoids and synthetic analogues, initial encounter; D50.0 Iron deficiency anemia secondary to blood loss (chronic); Z92.3 Personal history of irradiation; Z92.21 Personal history of antineoplastic chemotherapy; I25.10 Atherosclerotic heart disease of native coronary artery without angina pectoris; Z95.1 Presence of aortocoronary bypass graft; Z90.710 Acquired absence of both cervix and uterus; Z98.49 Cataract extraction status, unspecified eye; Z88.1 Allergy status to other antibiotic agents; Z88.8 Allergy status to other drugs, medicaments and biological substances; Z79.52 Long term (current) use of systemic steroids; R07.9 Chest pain, unspecified; Z96.651 Presence of right artificial knee joint; Z85.118 Personal history of other malignant neoplasm of bronchus and lung
CPT/HCPCS: 51701; 71010; 71020; 71101; 78582; 80048; 80053; 81003; 82274; 82308; 82553; 82728; 82947; 83540; 83550; 83605; 83880; 84484; 85025; 85027; 85379; 86850; 86900; 86901; 86923; 87040; 87070; 87205; 87633; 87804; 93005; 93308; 93970; 94640; 94760; 96374; 99291; A9540; A9567; J0456; J0692; J1650; J1815; J1940; J2543; J2920; J2930; P9016

== ENCOUNTER → 2017-01-14 | Outpatient (CLI) | payer MEDICARE, OTHER ==
[~2017-01-14] MED LIST changes: +ALB/IPRATROPIUM/1 EA INH; +ALDACTONE25 MG PO; +ATORVASTATIN CA10 MG PO; +BACTRIM DS TABL1 TA1 PO; +BUPROPION XL150 MG PO; +COMBIVENT MININEB INH; +COMBIVENT RESPIM4 GM INH; +COMBIVENT U/D3 ML INH; +DOCUSATE SODIU100 MG PO; +FLOMAX0.4 M1 DOB; +FLOMAX0.4 M1 PO; +FUROSEMIDE40 MG PO; +FUROSEMIDE40 MG/4 ML PO; +GUAIFENESIN LA600 M1 PO; +HYDROCODON-ACE1 EAC5 PO; +HYDROCORTISONE20 MG PO; +K-DUR20 ME1 PO; +LIDODERM1 EACH TD; +LISINOPRIL5 MG PO; +LOPRESSOR PO; +MUCINEX1200 MG PO; +NEXIUM 24HR20 M1 PO; +NORCO 10/3251 TAB PO; +PANTOPRAZOLE SO40 MG PO; +PREDNISONE10 MG/DOSE; +PREDNISONE2.5 MG PO; +PREDNISONE5 M1 PO; +PRILOSEC PO; +PROAIR RESPICL90 MCG; +PROTONIX40 M1 PO; +PULMICORT0.25 MG/2 INH; +PULMICORT0.5 MG/21 INH; +TUDORZA PRESS400 MCG INH; +VITAMIN D10000 UNIT PO; +VITAMIN D350000 UNIT PO; +WELLBUTRIN XL150 M2; +ZOFRAN ODT4 M1 PO
--- NOTE | ~2017-01-14 | CT57 ---
[facility] A Service of [facility] & [facility] RADIOLOGY TEXT RESULTS PATIENT: BERENICE MUÑIZ LOCATION: [facility] : 47 UNIT #: [id number] AGE: [address]: John Herrera MD SEX: F ORDER DR: [id number] [facility] [address] [place], [place] [address] [id number] O MR#: [id number] Acc #: [id number] NAME: BERENICE MUÑIZ : 1945 SEX: F STUDY DATE/TIME: 01/14/2017 UNIT: [facility] ROOM: STUDY DESCRIPTION: CT Chest Wo Cont Attending Physician: John Herrera M.D. Referring Physician: John Herrera M.D. Ordering Physician: John Herrera M.D. Primary Care Physician: Christine Greenfield A.P.R.N. MEDICAL IMAGING REPORT This report is preliminary unless electronic signature is present EXAM CT chest, without contrast, 01/14/2017, 0924 hours. HISTORY 71-year-old woman with history of lung carcinoma status post radiation therapy May 2016 for observation for suspected malignant neoplasm. Patient complains of left-sided chest pain and soreness in bilateral clavicles today. COMPARISON STUDIES CT chest, 07/27/2016. TECHNIQUE Helical noncontrasted images were obtained from the lung apices through the adrenal glands. Sagittal and coronal reconstructions were performed. Total exam DLP 493 mGy-cm. This CT exam was performed with one or more of the following radiation dose reduction techniques: automatic exposure control, adjustment of mA and/or kV according to patient size, and iterative reconstruction. FINDINGS Images through the thoracic inlet demonstrate no thyroid lesion or adenopathy. Images through the chest demonstrate benign calcified anterior mediastinal, right paratracheal, precarinal, subcarinal nodes. No pathologic adenopathy is seen. The aorta, cardiac chamber, and pericardium are normal. There is a moderate hiatal hernia without change. There is no pericardial or pleural fluid. Lung window images again demonstrate a nodule in the medial right upper lobe, abutting the right superior mediastinum, measuring 1.7 x 0.8 cm, similar to 07/27/2016, where it measured 1.7 x 0.9 cm. The lungs [facility] A Service of [facility] RADIOLOGY TEXT RESULTS PATIENT: BERENICE MUÑIZ LOCATION: [facility] : 47 UNIT #: [id number] AGE: [address]: John Herrera MD SEX: F ORDER DR: demonstrate diffuse emphysematous change and overall mild interstitial prominence. At the posterior right lung base, where patient had a previous nodule, there is increasing interstitial change and band-like subpleural density laterally. I cannot discretely measure the previously seen nodule. Question whether this represents atelectasis or developing postradiation pneumonitis. Correlate with radiation port. No acute findings are seen in the left lung. The patient has developed callus formation at the lateral left 7th, 8th and 9th rib fractures, which were acute on 07/27/2016. The patient has acute right 7th, 8th, and 9th rib fractures, which are minimally displaced. The area of increased density at the lateral right lung base is in the vicinity of these fractures, and these basilar changes could also be post traumatic. These fractures are new from 07/27/2016. The patient is noted to have had a right rib series on 01/07/2016, following a fall. These fractures may be related to that fall, but are not apparent on plain film. Plain film assessment is limited by the patient's underlying osteopenia. No lytic or blastic lesions are seen. 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 The patient has chronic compression deformity of T8 and L2. There is compression deformity at T12 with interval kyphoplasty change since the CT of 07/27/2016. No new compression fractures are seen. Limited views through the upper abdomen demonstrate a stable cyst in the left lobe of the liver. This measures approximately 1 cm. There is no adrenal metastasis. IMPRESSION 1. Nodule in the medial right upper lung abuts the right superior mediastinum and is stable, measuring 1.7 x 0.8 cm, as compared to 07/27/2016. 2. Previous nodule at the right lung base is obscured by interstitial change and band-like density laterally. These changes could represent postradiation change or acute posttraumatic change. 3. Interval healing and callus formation at the lateral left 7th, 8th, and 9th rib fractures, which were acute on 07/27/2016. 4. Patient has new displaced acute fractures of the right 7th, 8th and 9th ribs. Patient had a rib series for acute injury on 01/06/2017, and these fractures likely occurred at that time. No healing is yet seen. The fractures are not evident on plain film, likely due to the underlying osteopenia. 5. Stable compression fractures at T8, L2. Interval kyphoplasty change at compression at T12. No new thoracic lesions are seen. [facility]. [facility] A Service of [facility] RADIOLOGY TEXT RESULTS PATIENT: BERENICE MUÑIZ [id number] 47 UNIT #: [id number] AGE: [address]: John Herrera MD SEX: F ORDER DR: Dictated by... Cecelia Dominguez M.D. THIS IS AN ELECTRONICALLY VERIFIED REPORT Cecelia Dominguez M.D. at 01/17/2017 1:34 PM Zelalem TD: 01/14/2017 12:36 JOB #: [id number] MEDICAL IMAGING REPORT COPY
== END | disposition home or self-care (01) ==
LOC: CCAT 08:40
DX: C34.11 Malignant neoplasm of upper lobe, right bronchus or lung (principal); S22.43XD Multiple fractures of ribs, bilateral, subsequent encounter for fracture with routine healing; M48.55XD Collapsed vertebra, not elsewhere classified, thoracolumbar region, subsequent encounter for fracture with routine healing; Z98.890 Other specified postprocedural states; Z92.3 Personal history of irradiation
CPT/HCPCS: 71250

== ENCOUNTER 2017-01-16 23:30 | Inpatient (IN) | payer MEDICARE, OTHER ==
--- NOTE | ~2017-01-16 | CO ---
Unit #: [id number] #: [id number] Patient: BERENICE MUÑIZ [id number] [address] [place], [place] [address] [id number] I MR#: [id number] NAME: BERENICE MUÑIZ ROOM: 226 Age: 71 Sex: F Admission Date: 01/17/2017 : 1945 Attending Physician: Mark Dominguez M.D. Primary Care Physician: Christine Greenfield A.P.R.N. Consultation Date: 01/18/2017 CONSULTATION REPORT DICTATED FOR Raymon Bowie M.D. REASON FOR CONSULTATION Anemia and possible GI bleed. HISTORY OF PRESENT ILLNESS The patient is a 71-year-old female with past medical history of severe COPD on home O2, chronic respiratory failure, CHF, chronic anemia, lung cancer status post radiation therapy in 05/2016. The patient has been admitted with hypotension and anemia. She was found to have a hemoglobin of 7.7, which is a decrease from 8.4 when she was here less than 2 weeks ago. At that time, the patient was also evaluated for anemia, but no workup was done. The patient recently had an EGD in 11/2016, which was unremarkable except for hiatal hernia and esophageal ring. Colonoscopy was not done at that time as risks outweighed benefits and the patient being a very poor surgical candidate. The patient denies any history of overt GI bleed in form of hematemesis, melena, or hematochezia. PAST MEDICAL HISTORY Significant for severe COPD, chronic respiratory failure, congestive heart failure, chronic anemia, lung cancer status post radiation therapy, degenerative disk disease, osteoporosis with compression fractures, history of breast cancer, hypothyroidism, and anxiety. PAST SURGICAL HISTORY Hysterectomy, bladder suspension, carpal tunnel, back surgery, ortho trapezium repair, right knee replacement, cataract surgery, left breast lumpectomy, wrist surgery, hemorrhoidectomy, EGD in 11/2016. HOME MEDICATIONS Include vitamin D competent, Aldactone, Lipitor, pantoprazole, Flomax, Zofran, Prilosec, guaifenesin, [place], Perforomist, Pulmicort, lisinopril, albuterol, Lidoderm, Singulair, bupropion, Colace, Daliresp, metoprolol, gabapentin, Celexa, Flexeril, and furosemide. ALLERGIES Morphine and Cipro. SOCIAL HISTORY The patient is a reformed smoker, quit 2 to 3 years ago. No history of alcohol or illicit drug use. FAMILY HISTORY Unit #: [id number] #: [id number] Patient: BERENICE MUÑIZ None for colon cancer, pancreatic, or liver disease. REVIEW OF SYSTEM Detailed review of system does not reveal any recent weight loss. No fever or chills. No headache, seizures, chest pain, syncope. The patient does have chronic cough and shortness of breath. No dysuria or hematuria. The rest review of systems was done and is unremarkable. PHYSICAL EXAMINATION GENERAL: The patient is awake, alert, oriented, comfortable, in no acute distress. VITAL SIGNS: Stable with temperature 98, blood pressure 137/70, heart rate 79, respirations 16. HEENT: The patient does have mild pallor. No scleral icterus. No lymphadenopathy. No peripheral edema. CARDIOVASCULAR: Regular rate and rhythm. CHEST: Decreased breath sounds bilaterally. ABDOMEN: Soft, nontender. Liver and spleen not palpable. Bowel sounds are normal. DIAGNOSTIC STUDIES LABORATORY RESULTS: BMP notable for glucose 116, normal BUN and creatinine. CBC notable for hemoglobin 8.9, status post 1 unit of packed red blood cells; MCV 86; platelet 299. CLINICAL IMPRESSION AND PLAN The patient with chronic anemia. Recently, had an unremarkable upper gastrointestinal endoscopy. Her last colonoscopy had been about 10 years ago and ideally repeat colonoscopy would be recommended, but as have discussed with the patient and her family during previous admission, the patient is a poor surgical candidate and has high surgical risk. The risks of colonoscopy outweighed the benefits, therefore, we will recommend supportive care, monitoring of hemoglobin, and transfuse as needed. Plan of care discussed in detail with the patient and her family at the bedside. The patient has been discussed with Dr. Bowie. Further recommendations to follow. Thank you very much for asking us to see this patient. We appreciate the consult. Dictated by.LIMA Grant/merrick TD: 01/19/2017 02:17 JOB #: [id number] Unit #: [id number] #: [id number] Patient: BERENICE MUÑIZ CONSULTATION REPORT X X CONSULTATION REPORT
--- NOTE | ~2017-01-16 | CR72 ---
[facility] A Service of [facility] & [facility] RADIOLOGY TEXT RESULTS PATIENT: BERENICE MUÑIZ LOCATION: [facility] : 47 UNIT #: [id number] AGE: [address]: Mark Dominguez MD SEX: F ORDER DR: [id number] [facility] [address] [place], [place] [address] [id number] I MR#: [id number] Acc #: [id number] NAME: BERENICE MUÑIZ. : 1945 SEX: F STUDY DATE/TIME: 01/17/2017 0:28 UNIT: [facility] ROOM: [facility] STUDY DESCRIPTION: CR Chest Single View Portable Attending Physician: Mark Dominguez M.D. Ordering Physician: Jose Concepcion M.D. Primary Care Physician: Christine Greenfield A.P.R.N. MEDICAL IMAGING REPORT This report is preliminary unless electronic signature is present EXAM AP portable chest 01/17/2017 00:28 HISTORY 71-year-old female with palpitations, shortness of breath tonight. History of lung cancer. Congestive heart failure. COPD. Hypertension. COMPARISON PA and lateral chest radiograph 01/05/2017. CT chest 01/14/2017. FINDINGS Low volume inspiration. No acute airspace disease. Heart size is within normal limits. Benign calcified granulomatous changes in each hilar region. Old left mid shaft humeral fracture. Emphysematous changes demonstrated to better advantage on previous CT chest. Vertebroplasty changes in the lower thoracic spine. Old right rib fracture, also seen on recent CT chest. Probable mild pleural thickening near the margin of the right rib fracture. IMPRESSION 1. Right rib fracture with adjacent right basilar pleural thickening, thought to correspond to the CT chest findings from 01/14/2017. 2. No acute airspace disease. 3. Emphysema. 4. Old left humeral shaft fracture. 5. Old left rib fractures, not included in the body of the report, also demonstrated to better advantage on previous CT chest. Dictated by... Soila Luna M.D. THIS IS AN ELECTRONICALLY VERIFIED REPORT [facility] A Service of [facility] & [facility] RADIOLOGY TEXT RESULTS PATIENT: BERENICE MUÑIZ LOCATION: [facility] 226-01 : [birth year] UNIT #: [id number] AGE: [address]: Mark Dominguez MD SEX: F ORDER DR: Soila Luna M.D. at 01/17/2017 10:02 PM DONTAE/shameka TD: 01/17/2017 07:20 JOB #: [id number] MEDICAL IMAGING REPORT COPY
--- NOTE | ~2017-01-16 | HP ---
Unit #: [id number] #: [id number] Patient: BERENICE MUÑIZ [id number] [address] [place], [place] [address] [id number] I MR#: [id number] NAME: BERENICE MUÑIZ. ROOM: 226 Age: 71 Sex: F Admission Date: 01/17/2017 : 1945 Attending Physician: Mark Dominguez M.D. Primary Care Physician: Christine Greenfield A.P.R.N. HISTORY AND PHYSICAL HISTORY OF PRESENT ILLNESS Ms. Muñiz is a pleasant 71-year-old lady with a history of severe COPD, just recently here for shortness of breath. The patient presents with worsening symptoms. She has palpitations, tachycardia, hypotension at home. Home health saw that her blood pressure was in the 60s so they sent her to the emergency room. The patient denies fevers, chills, nausea or vomiting, diarrhea, abdominal pain, melena, hematochezia or hematemesis. We have been asked to admit for anemia workup and hypotension. PAST MEDICAL HISTORY Significant for: 1. COPD. 2. Congestive heart failure. 3. History of breast cancer. 4. Kidney disease. 5. Lung cancer. 6. History of hypothyroidism. 7. History of anxiety. PAST SURGICAL HISTORY Significant for: 1. Hysterectomy. 2. Bladder suspension x2. 3. Carpal tunnel. 4. Back surgery. 5. Arthro trapezium repair. 6. Right knee replacement. 7. Cataract surgery. 8. Left breast lumpectomy. 9. Neck abscess drained. 10. Wrist surgery. 11. Teeth extraction. 12. Status post hemorrhoidectomy. HOME MEDICATIONS Include: 1. Vitamin D 50,000 units weekly. 2. Combivent q.i.d. p.r.n. 3. Aldactone 25 mg daily. 4. Lipitor 10 mg h.s. 5. Pantoprazole 40 mg daily. 6. Flomax 0.4 mg daily. 7. Zofran 4 mg p.o. q.4 h. Unit #: [id number] #: [id number] Patient: BERENICE MUÑIZ 8. Prilosec 20 mg b.i.d. 9. Guaifenesin 600 mg b.i.d. 10. Nursery 10/325 one tablet q.6 h. 11. Perforomist one puff inhaled b.i.d. 12. Pulmicort 0.5 mg b.i.d. 13. Lisinopril 5 mg daily. 14. Albuterol ipratropium one neb q.i.d. and p.r.n. 15. Lidoderm one topical 5% patch daily. 16. Singulair 10 mg daily. 17. Bupropion 150 mg b.i.d. 18. Colace 100 mg daily. 19. Daliresp 500 mcg p.o. daily. 20. Metoprolol 25 mg p.o. b.i.d. 21. Gabapentin 300 mg b.i.d. 22. Celexa 20 mg daily. 23. Flexeril 10 mg t.i.d. 24. Furosemide 40 mg daily. 25. Prednisone taper. ALLERGIES 1. Morphine. 2. Ciprofloxacin. SOCIAL HISTORY Ex-smoker, quit approximately 2 or 3 years ago. No history of alcohol, no history of polysubstance use. FAMILY HISTORY Noncontributory as far as I know. PHYSICAL EXAMINATION VITAL SIGNS: T. current 98.3, pulse 107, respiratory rate 18, blood pressure 115/66. I's and O's not recorded. Saturating 93% on 4 liters nasal cannula. HEENT: Extraocular movements are intact. Pupils are equal, round and reactive to light. Head is normocephalic, atraumatic. NECK: Shows a little bit of accessory muscle use. I do not detect any lymphadenopathy. There may be a little bit of JVD. LUNGS: Very decreased breath sounds bilaterally. No rhonchi, rales or wheezes. Breath sounds are very decreased bilaterally. HEART: Regular rate, no gallop. ABDOMEN: Soft, nontender, nondistended. EXTREMITIES: +1 edema. DIAGNOSTIC STUDIES LABORATORY: CK, CKMB and troponin are negative x2. BNP is 57. White count 13.3, hemoglobin 7.7, platelets 311. Basic metabolic panel sodium 134, potassium 3.2, BUN 19, creatinine 1.4, calcium 8.6. INR 0.9. IMAGING: CT chest without contrast shows multiple rib fractures. Nodule in the right upper lung which is unchanged. Compression fractures at T8 and L2 and kyphoplasty at T12. CARDIOVASCULAR: EKG shows sinus tachycardia with occasional PVC. ASSESSMENT AND PLAN 1. Anemia and hypotension. I suspect this is probably due to the anemia, probably a little bit of dehydration. Patient is encouraged Unit #: [id number] #: [id number] Patient: BERENICE MUÑIZ to take p.o. as much as possible. She will receive 1 unit of packed red blood cells. Will consult Cardiology and Gastroenterology. 2. History of rib fractures and kyphoplasty. The rib fractures are healing. 3. Severe chronic obstructive pulmonary disease. Will continue home COPD medications. I believe she is having a COPD exacerbation at this time. Dictated by Verena Duval/eliza TD: 01/17/2017 19:59 JOB #: [id number] HISTORY AND PHYSICAL X Adan Bernal MD X HISTORY AND PHYSICAL
--- NOTE | ~2017-01-16 | CT2 ---
[facility] A Service of [facility] / [facility] RADIOLOGY TEXT RESULTS PATIENT: BERENICE MUÑIZ LOCATION: [facility] : 47 UNIT #: [id number] AGE: [address]: Mark Dominguez MD SEX: F ORDER DR: [id number] [facility] [address] [place], [place] [address] [id number] I MR#: [id number] #: [id number] NAME: BERENICE MUÑIZ. : 1945 SEX: F STUDY DATE/TIME: 01/20/2017 10:44 UNIT: [facility] ROOM: [facility] STUDY DESCRIPTION: CT Abd and Pelv W Cont Attending Physician: Mark Dominguez M.D. Ordering Physician: Raymon Bowie M.D. Primary Care Physician: Christine Greenfield A.P.R.N. MEDICAL IMAGING REPORT This report is preliminary unless electronic signature is present EXAM CT of the abdomen and pelvis. DATE OF EXAM 01/20/2017 INDICATIONS Left lower quadrant abdominal pain and abdominal tenderness for 2-3 days. Right lower abdominal pain. TECHNIQUE CT of the abdomen and pelvis with p.o. and IV contrast (100 mL Isovue-370 IV contrast). Coronal and sagittal reconstructions were obtained. NOTE: This CT exam was performed with one or more of the following radiation dose reduction techniques: automatic exposure control, adjustment of mA and/or kV according to patient size, and iterative reconstruction. COMPARISON None available. FINDINGS ABDOMEN: There is emphysema in the lung bases. There is a moderate hiatal hernia. There is a small cyst in the left hepatic lobe. Gallbladder is not distended. No intrahepatic or extrahepatic biliary dilatation. Pancreas, spleen, and adrenal glands are within normal limits. Kidneys enhance normally. No hydronephrosis. The bowel is not dilated. The appendix is not clearly identified, however, there is no inflammatory change adjacent to the cecum. The abdominal aorta is normal in caliber. There is a small umbilical hernia. PELVIS: No pelvic mass. The uterus and ovaries are presumed surgically [facility] A Service of [facility] RADIOLOGY TEXT RESULTS PATIENT: BERENICE MUÑIZ LOCATION: [facility] 226- : [birth year] UNIT #: [id number] AGE: [address]: Mark Dominguez MD SEX: F ORDER DR: absent. No enlarged pelvic or inguinal lymph nodes. No acute osseous abnormalities. There is a prior fusion of the L3-L5 levels. There is grade 2 anterolisthesis of L4 on L5. There is a prior kyphoplasty at T12. There is an inferior endplate fracture of L1 resulting in approximately 25% anterior height loss. This is unchanged from 01/14/2017 comparison. IMPRESSION No acute findings in the abdomen or pelvis. Dictated by... Uvaldo Theodore M.D. THIS IS AN ELECTRONICALLY VERIFIED REPORT Uvaldo Theodore M.D. at 01/20/2017 4:16 PM ELEANOR/sathya TD: 01/20/2017 16:01 JOB #: [id number] MEDICAL IMAGING REPORT COPY
--- NOTE | ~2017-01-16 | CO ---
Unit #: [id number] #: [id number] Patient: BERENICE MUÑIZ [id number] [facility]. [place] [id number] [facility]. [place], [place] [address] [id number] I MR#: [id number] NAME: BERENICE MUÑIZ. ROOM: 226 Age: 71 Sex: F Admission Date: 01/17/2017 : 1945 Attending Physician: Mark Dominguez M.D. Primary Care Physician: Christine Greenfield A.P.R.N. Consultation Date: 01/18/2017 CONSULTATION REPORT REASON FOR CONSULTATION Palpitations, hypotension. HISTORY OF PRESENT ILLNESS This is a 71-year-old white female who has severe COPD, on continuous home oxygen, has a history of rib fractures and has had kyphoplasty and has a new rib fracture from where she fell a few days ago. She also has chronic anemia and has acute on chronic systolic congestive heart failure and we had seen last year with an EF of 45% to 50%. The patient has a history of lung cancer and follows with Dr. Herrera and had radiation last May. Reports that lung cancer is in remission. She came to the emergency room by EMS for increased shortness of breath and palpitations and hypotension at home. Home health sees the patient and they reported that her blood pressure was in the 60s. The patient had been having decreased oral intake. The patient, however, denies any fever or chills. No nausea, vomiting, diarrhea or abdominal pain. Denied any evidence of any acute bleeding such as melena, hematochezia and hematemesis. Initial labs - her creatinine is 1.4. Her potassium is 3.8 with BNP 57, WBCs are 13.3 with a hemoglobin of 7.7, hematocrit 23.8. The patient was recently discharged on 01/06/2017 after having a few days of being treated for chronic hypoxic respiratory failure, exacerbation of COPD and anemia. The patient was known to have a positive occult blood and was evaluated by Dr. Raymon Bowie. He did not want to proceed with a colonoscopy. He thought she was too frail and weak and with her respiratory status she would be at high risk. PAST MEDICAL HISTORY 10/2016 cardiac cath revealed normal left main, normal LAD. Left circumflex revealed 20% stenosis, RCA was normal. 2. 12/23/2016 2D echo - LVEF of 30% to 35% with mild mitral regurgitation, mild to moderate pulmonic regurgitation with elevated RVSP 43 mmHg. 3. Chronic back pain. 4. Degenerative disc disease. 5. Spinal stenosis. 6. Osteoporosis. PAST SURGICAL HISTORY 1. Hysterectomy. 2. Bladder suspension x2. 3. Carpal tunnel surgery. 4. Back surgery. 5. Trapezium repair. Unit #: [id number] #: [id number] Patient: BERENICE MUÑIZ 6. Right knee replacement. 7. Cataract surgery. 8. Left breast lumpectomy. 9. Neck abscess. 10. I and D. 11. Wrist surgery. 12. Teeth extraction. 13. Hemorrhoidectomy. HOME MEDICATIONS 1. Vitamin D 50,000 units p.o. weekly. 2. Combivent inhaler p.r.n. 3. Aldactone 25 mg, one tablet p.o. daily. 4. Lipitor 10 mg, one tablet h.s. 5. Pantoprazole 40 mg, one tablet daily. 6. Flomax 0.4 mg p.o., one tablet daily. 7. Zofran 4 mg p.o. every four hours p.r.n. for nausea and vomiting. 8. Prilosec 20 mg, one tablet p.o. twice daily. 9. Guaifenesin 600 mg p.o. twice daily. 10. Peculiar 10/325, one tablet p.o. every six hours p.r.n. 11. Perforomist, one puff inhalation twice daily. 12. Pulmicort 0.5 mg p.o. twice daily. 13. Lisinopril 5 mg p.o. daily. 14. Albuterol ipratropium nebulizer four times daily and p.r.n. 15. Lidoderm patch daily. 16. Singulair 10 mg p.o. daily. 17. Wellbutrin 150 mg p.o. twice daily. 18. Colace 100 mg p.o. daily. 19. Daliresp, one inhalation daily. 20. Metoprolol 25 mg, one tablet p.o. twice daily. 21. Gabapentin 300 mg, one tablet p.o. twice daily. 22. Celexa 20 mg p.o. daily. 23. Flexeril 10 mg p.o. there times daily. 24. Furosemide 40 mg p.o. daily. 25. Prednisone tapering dose. ALLERGIES Morphine and ciprofloxacin. SOCIAL HISTORY The patient lives with her family. She quit smoking about two to three years ago. No alcohol or illicit drug abuse. FAMILY HISTORY She has had a sister, brother and parent with chronic lung disease but no coronary artery disease. REVIEW OF SYSTEMS See details in HPI. PHYSICAL EXAMINATION GENERAL: On exam, Ms. Muñiz a 71-year-old white female, currently in no acute respiratory distress. She is awake, alert and oriented. VITAL SIGNS: Blood pressure is 135/86, heart rate 76, respirations 16, temperature 98.6, O2 sats 100% on 3 L. NECK: Trachea midline. No thyromegaly or lymphadenopathy. Normal carotid upstrokes. No jugular venous distention. HEART: S1, S2. Regular rate and rhythm. Soft systolic murmur left Unit #: [id number] #: [id number] Patient: BERENICE MUÑIZ A sternal border. LUNGS: Very diminished, otherwise clear. ABDOMEN: Soft, nontender. Positive bowel sounds present. EXTREMITIES: Pedal pulses are palpable. Trace of pedal edema. DIAGNOSTIC STUDIES LABORATORY: Glucose is 116, BUN 17, creatinine 0.7, eGFR above 60, sodium 136, potassium 4.3, chloride 99, CO2 28, calcium 8.8, BNP 57, INR is 0.9, WBC 9.7, hemoglobin is 8.9, hematocrit 27.5, and platelets of 299. On admission, patient's hemoglobin was 7.7 with hematocrit of 23.8. CARDIOVASCULAR: EKG shows sinus tachycardia with occasional premature ventricular complex, ventricular rate 118 beats per minute. IMAGING: Chest x-ray shows emphysematous changes with some minimal bibasilar atelectasis and no consolidation. Bilateral rib fractures, age indeterminate. Small esophageal hiatal hernia and old left humeral shaft fracture. On admission, the right rib fracture looks fairly new and she had old left rib fracture. IMPRESSION 1. Acute on chronic hypoxic respiratory failure, exacerbation of chronic obstructive pulmonary disease. 2. Anemia. 3. Hypotension. 4. Palpitations. 5. Right rib fracture. 6. Sinus tachycardia. 7. History of kyphoplasty. 8. History of left rib fracture. 9. History of chronic anemia. 10. Chronic systolic congestive heart failure, left ventricular ejection fraction of 30% to 35%, mild mitral regurgitation, mild AZ, elevated RVSP 43 mmHg, moderate pulmonary artery hypertension. 11. 06/2016 2D echo shows left ventricular ejection fraction of 45% to 50% with impaired LV relaxation and tract AZ. 12. Stress test years ago. 13. Hypertension. 14. Hyperlipidemia. 15. Reformed smoker. 16. 10/2016 cardiac cath - normal left main and left anterior descending, 20% stenosis in mid left circumflex and right coronary artery was normal. 17. History of lung carcinoma, status post radiation 05/2016, in remission. 18. Chronic back pain. 19. Degenerative disc disease. 20. Spinal stenosis. 21. Osteoporosis. PLAN 1. Cardiology consulted to assist with evaluation of patient's hypotension along with complaints of palpitations. Likely patient is having some symptomatic anemia. The patient received one unit of packed red blood cells for blood pressures more stable. Patient is also currently getting normal saline at 100 mL/hour and stool for occult blood has been ordered. Dr. Raymon Bowie has been consulted to assist with evaluation and management. Unit #: [id number] #: [id number] Patient: BERENICE MUÑIZ 2. At this point, will stop the lisinopril and metoprolol and Aldactone due to the hypotension and also patient taking oral fluids sufficiently. Will stop the IV fluids at this point. Her blood pressure is 130 systolic. 3. On exam, there are no signs or symptoms of unstable angina. We will continue to monitor cardiac enzymes. EKG does not show anything acute. The patient's tachycardia should improve after hydration and blood transfusion. 4. On exam, there are no signs or symptoms of acute congestive heart failure. The patient is being treated for some mild exacerbation of chronic obstructive pulmonary disease. She does have some rhonchi and wheezes. 5. At this point, there is no further ischemic heart disease workup. 6. It is noted the patient's last cath in October 2016 did show a 20% stenosis in the left circumflex, otherwise normal coronaries. 7. Also, I have an updated 2D echo that was done 12/23/2016 that shows her LVEF of 30% to 35% with mild mitral regurgitation, mild to moderate pulmonic regurgitation with elevated RVSP 43 mmHg. Patient will be restarted back on her FLORENTINO inhibitor before discharge after her blood pressure is more stable. 8. When Dr. Bowie sees the patient, the patient on January 06 had a positive stool for occult blood, he felt at that time she wasn't stable enough to have any kind of scopes. He is going to re-evaluate. Dictated by... Keara Leonardo A.P.R.N. for Verena Starkey/bere TD: 01/20/2017 10:29 JOB #: [id number] CONSULTATION REPORT X Keara Leonardo APRN X CONSULTATION REPORT
--- NOTE | ~2017-01-16 | CR72 ---
[facility] A Service of [facility] & [facility] RADIOLOGY TEXT RESULTS PATIENT: BERENICE MUÑIZ LOCATION: [facility] 226 : [birth year] UNIT #: [id number] AGE: [address]: Mark Dominguez MD SEX: F ORDER DR: [id number] [facility] [address] [place], [place] [address] [id number] I MR#: [id number] Acc #: [id number] NAME: BERENICE MUÑIZ. : 1945 SEX: F STUDY DATE/TIME: 01/18/2017 4:14 UNIT: [facility] ROOM: [facility] STUDY DESCRIPTION: CR Chest Single View Portable Attending Physician: Mark Dominguez M.D. Ordering Physician: Winston Bernal M.D. Primary Care Physician: Christine Greenfield A.P.R.N. MEDICAL IMAGING REPORT This report is preliminary unless electronic signature is present EXAM AP portable chest, 01/18/2017 at 04:14 HISTORY COPD, tachycardia, hypotension, shortness of breath. Symptoms began 01/17/2017. History of breast and lung cancer. COPD. Congestive heart failure. COMPARISON AP portable chest 01/17/2017. CT chest 01/14/2017. FINDINGS Bilateral rib fractures are demonstrated to better advantage on previous CT chest. No pneumothorax is seen. Old left humeral shaft fracture. Osteopenic changes. Emphysematous changes. Heart size is stable. No definite acute airspace disease. Probable trace right pleural effusion or pleural thickening unchanged. Benign calcified granulomatous changes in the right hilum and mediastinum. Small esophageal hiatal hernia demonstrated to better advantage on previous CT chest. Probable mild bibasilar linear atelectatic type changes, not mentioned above. IMPRESSION 1. Emphysematous changes with probable minimal bibasilar atelectasis and no consolidation. Trace right pleural thickening or pleural effusion. No significant change from 01/17/2017. 2. Bilateral rib fractures, age indeterminate. 3. Small esophageal hiatal hernia. 4. Old left humeral shaft fracture. Dictated by... Soila Luna M.D. THIS IS AN ELECTRONICALLY VERIFIED REPORT [facility] A Service of [facility] & [facility] RADIOLOGY TEXT RESULTS PATIENT: BERENICE MUÑIZ LOCATION: [facility] 226-01 : [birth year] UNIT #: [id number] AGE: [address]: Mark Dominguez MD SEX: F ORDER DR: Soila Luna M.D. at 01/19/2017 1:50 AM DONTAE/audrey TD: 01/18/2017 11:34 JOB #: [id number] MEDICAL IMAGING REPORT COPY
--- NOTE | ~2017-01-16 | EKG ---
PATIENT: BERENICE MUÑIZ UNIT #: [id number] Ventricular Rate: 118 BPM Atrial Rate: 118 BPM P-R Interval: 154 ms QRS Duration: 82 ms Q-T Interval: 314 ms QTC Calculation(Bezet): 440 ms P Madison: 39 degrees Calculated R Madison: 26 degrees Calculated T Madison: -39 degrees Diagnosis Line: Sinus tachycardia with occasional Premature Diagnosis Line: ventricular complexes Diagnosis Line: Nonspecific ST and T wave abnormality Diagnosis Line: Abnormal ECG Diagnosis Line: When compared with ECG of 16-JAN-2017 23:13, Diagnosis Line: (unconfirmed) Diagnosis Line: Premature ventricular complexes are now Present Diagnosis Line: Confirmed by MIKY CHILEL MD ([id number]) on Diagnosis Line: 01/17/2017 3:26:56 PM INTERPRETING MD: RANJANA KELSEY
--- NOTE | ~2017-01-16 | DS ---
Unit #: [id number] #: [id number] Patient: BERENICE MUÑIZ [id number] [address] [place], [place] [address] [id number] I MR#: [id number] NAME: BERENICE MUÑIZ ROOM: 226 Age: 71 Sex: F Admission Date: 01/17/2017 : 1945 Discharge Date: 01/21/2017 Attending Physician: Mark Dominguez M.D. Primary Care Physician: Christine Greenfield A.P.R.N. DISCHARGE SUMMARY CONSULTING PHYSICIANS 1. Dr. Myers with cardiology. 2. Dr. Bowie with gastroenterology. CONDITION ON DISCHARGE Stable. FINAL DIAGNOSES 1. Anemia: The patient's hemoglobin was 7.7 upon admission. Did receive a blood transfusion during her stay. Hemoglobin yesterday morning was 9.7. CBC from this morning, date of discharge, is currently pending. 2. Severe chronic obstructive pulmonary disease; however, she does not appear to be in an acute exacerbation at this time after she has been receiving IV steroids. 3. Left lower quadrant abdominal pain: The patient has had a CT of the abdomen and pelvis ordered by gastroenterology that did not reveal any acute findings. HOSPITAL COURSE The patient was admitted on January 17, 2017 for symptomatic anemia as well as some shortness of breath and some hypotension likely secondary to the anemia. The patient was given 1 unit of packed red blood cells. Both GI and cardiology were asked to see her. Patient received 1 unit of packed red cells and hemoglobin improved and has continued to improve during her stay. Occult blood was ordered that was positive. Patient continued to complain of left lower quadrant pain. GI saw the patient and ordered a CT of the abdomen and pelvis. CT was completed on the and did not reveal any acute findings. Currently, awaiting GI followup and recommendations for discharge. GI has already mentioned in a previous stay within the last couple of weeks that due to her pulmonary status, they are not going to proceed with any scopes or surgical interventions. Pending results from this a.m. CBC as well as GI's input, we are discharging the patient today on a p.o. steroid taper. PHYSICAL EXAMINATION On date of discharge: VITAL SIGNS: Temperature was 98, heart rate 67, respirations 17, blood pressure 164/87, oxygen saturation 100%. GENERAL: The patient is in no acute distress, up walking around in the room. NEUROLOGIC: She is awake, alert, and oriented. HEENT: She is without adenopathy and without JVD. LUNGS: Mild expiratory wheezes bilaterally; however, respirations are Unit #: [id number] #: [id number] Patient: BERENICE MUÑIZ even and unlabored. Patient is on her home amount of O2. CARDIOVASCULAR: Currently regular rate and rhythm. ABDOMEN: Soft, round, currently nontender. Bowel sounds positive. EXTREMITIES: Without edema. SKIN: Without lesions or rashes. DIAGNOSTIC STUDIES LABORATORY: Laboratory data on date of discharge is currently pending. CBC and BMP have been sent. We are awaiting results. As long as hemoglobin is stable, we will proceed with discharge. DISCHARGE MEDICATIONS The patient will be sent home on a p.o. steroid taper. DISCHARGE INSTRUCTIONS Currently awaiting discharge instructions from gastroenterology. Can proceed with discharge once we hear from there and receive further instruction from their standpoint. Cardiology has made a followup appointment for her to see Dr. Myers on , March 24, 2017 at 2:15 and we would like for her to follow up in our office in one month. The patient needs to call for an appointment. Dictated by... Abby Rangel APRN for Verena Duval/dede TD: 01/21/2017 11:35 JOB #: [id number] DISCHARGE SUMMARY X Abby Rangel X DISCHARGE SUMMARY
[~2017-01-16 23:30] MED LIST changes: -ATORVASTATIN CA10 MG PO; -COMBIVENT MININEB INH; -COMBIVENT RESPIM4 GM INH; -FLOMAX0.4 M1 DOB; -FUROSEMIDE40 MG PO; -HYDROCODON-ACE1 EAC5 PO; -HYDROCORTISONE20 MG PO; -K-DUR20 ME1 PO; -LIDODERM1 EACH TD; -LOPRESSOR PO; -MUCINEX1200 MG PO; -NEXIUM 24HR20 M1 PO; -PREDNISONE2.5 MG PO; -PREDNISONE5 M1 PO; -PROAIR RESPICL90 MCG; -PROTONIX40 M1 PO; -PULMICORT0.25 MG/2 INH; -TUDORZA PRESS400 MCG INH; -VITAMIN D10000 UNIT PO; -VITAMIN D350000 UNIT PO; -WELLBUTRIN XL150 M2; -ZOFRAN ODT4 M1 PO
[2017-01-17 01:26] LABS: BASOPHIL% 0.3 % (0-2.5); DIFF IND YES; EOSINOPHIL# 0.1 X10e3 (0-0.7); EOSINOPHIL% 0.8 % (0.0-7.0); HEMATOCRIT 23.8 % (35.0-45.0); HEMOGLOBIN 7.7 gm/dL (12.0-16.0); LYMPHOCYTE# 1.8 X10e3 (1.0-3.5); LYMPHOCYTE% 13.7 % (17.0-45.0); MEAN CELL VOLUME 85.3 FL (83-96); MEAN CORPUSCULAR HEMOGLOBIN 27.8 PG (28-34); MEAN CORPUSCULAR HGB CONC 32.6 g/dL (30-36); MEAN PLATELET VOLUME 7.2 FL (6.5-11.5); MONOCYTE# 1.3 X10e3 (0-1.0); MONOCYTE% 9.8 % (3.0-12.0); NEUTROPHIL% 75.4 % (40-75); PLATELET COUNT 311 X10e3 (140-420); RED BLOOD COUNT 2.79 X10e (3.90-5.30); RED CELL DISTRIBUTION WIDTH 16.8 % (11.0-15.5); WHITE BLOOD COUNT 13.3 X10e3 (4.0-10.5)
[2017-01-17 01:26] LABS: POC - CKMB <1.0 ng/mL (0.0-7.9); POC - TROPONIN <0.05 ng/mL (<=0.05)
[2017-01-17 01:32] LABS: INR 0.9; PROTHROMBIN TIME (PATIENT) 9.8 SECONDS (9.6-11.5)
[2017-01-17 01:42] LABS: BUN/CREATININE RATIO 12.85; CALCIUM SERUM 8.6 mg/dL (8.4-10.2); CREATININE SERUM 1.4 mg/dL (0.6-1.4); GLOM FILT RATE Estimated 39.6 mL/min (>60); POTASSIUM 3.2 mmol/L (3.5-5.1)
[2017-01-17 01:51] LABS: ANISOCYTOSIS SL; OVALOCYTES PRESENT; PLATELET ESTIMATE NORMAL (NORMAL); POIKILOCYTOSIS SL
[2017-01-17 01:52] LABS: TEAR DROP CELLS PRESENT
[2017-01-17 03:06] LABS: POC - CKMB <1.0 ng/mL (0.0-7.9); POC - TROPONIN <0.05 ng/mL (<=0.05)
[2017-01-17 20:14] LABS: HEMATOCRIT 25.5 % (35.0-45.0); HEMOGLOBIN 8.2 gm/dL (12.0-16.0)
[2017-01-18 06:07] LABS: HEMATOCRIT 27.2 % (35.0-45.0); HEMOGLOBIN 8.8 gm/dL (12.0-16.0); MEAN CELL VOLUME 86.4 FL (83-96); MEAN CORPUSCULAR HEMOGLOBIN 27.9 PG (28-34); MEAN CORPUSCULAR HGB CONC 32.2 g/dL (30-36); RED BLOOD COUNT 3.15 X10e (3.90-5.30); RED CELL DISTRIBUTION WIDTH 16.3 % (11.0-15.5); WHITE BLOOD COUNT 9.7 X10e3 (4.0-10.5)
[2017-01-18 07:12] LABS: BLOOD UREA NITROGEN 17 mg/dL (9-23); BUN/CREATININE RATIO 24.28; CALCIUM SERUM 8.8 mg/dL (8.4-10.2); CARBON DIOXIDE 28 mmol/L (22-31); CHLORIDE 99 mmol/L (100-111); CREATININE SERUM 0.7 mg/dL (0.6-1.4); GLOM FILT RATE Estimated ABOVE60 mL/min (>60); GLUCOSE FASTING 116 mg/dL (70-110); POTASSIUM 4.3 mmol/L (3.5-5.1); SODIUM 136 mmol/L (135-145)
[2017-01-18 08:09] LABS: HEMATOCRIT 27.5 % (35.0-45.0); HEMOGLOBIN 8.9 gm/dL (12.0-16.0)
[2017-01-18 19:33] LABS: HEMATOCRIT 28.5 % (35.0-45.0); HEMOGLOBIN 9.3 gm/dL (12.0-16.0)
[2017-01-19 06:27] LABS: HEMATOCRIT 29.9 % (35.0-45.0); HEMOGLOBIN 9.4 gm/dL (12.0-16.0); MEAN CELL VOLUME 87.2 FL (83-96); MEAN CORPUSCULAR HEMOGLOBIN 27.4 PG (28-34); MEAN CORPUSCULAR HGB CONC 31.5 g/dL (30-36); MEAN PLATELET VOLUME 7.2 FL (6.5-11.5); RED BLOOD COUNT 3.43 X10e (3.90-5.30); RED CELL DISTRIBUTION WIDTH 16.5 % (11.0-15.5); WHITE BLOOD COUNT 9.5 X10e3 (4.0-10.5)
[2017-01-19 07:01] LABS: ALBUMIN SERUM 3.3 g/dL (3.5-5.0); ALKALINE PHOSPHATASE 59 U/L (32-92); ALT (SGPT) 14 U/L (10-40); AST (SGOT) 16 U/L (10-42); BILIRUBIN,TOTAL 0.3 mg/dL (0.2-2.0); BLOOD UREA NITROGEN 18 mg/dL (9-23); CALCIUM SERUM 9.1 mg/dL (8.4-10.2); CARBON DIOXIDE 29 mmol/L (22-31); CHLORIDE 101 mmol/L (100-111); CREATININE SERUM 0.6 mg/dL (0.6-1.4); GLOM FILT RATE Estimated ABOVE60 mL/min (>60); GLUCOSE FASTING 134 mg/dL (70-110); POTASSIUM 4.6 mmol/L (3.5-5.1); PROTEIN TOTAL SERUM 5.5 g/dL (6.0-8.3); SODIUM 139 mmol/L (135-145)
[2017-01-20 06:57] LABS: HEMATOCRIT 30.4 % (35.0-45.0); HEMOGLOBIN 9.7 gm/dL (12.0-16.0); MEAN CELL VOLUME 87.1 FL (83-96); MEAN CORPUSCULAR HEMOGLOBIN 27.9 PG (28-34); RED BLOOD COUNT 3.49 X10e (3.90-5.30); RED CELL DISTRIBUTION WIDTH 16.4 % (11.0-15.5); WHITE BLOOD COUNT 8.6 X10e3 (4.0-10.5)
[2017-01-20 07:36] LABS: THYROID STIMULATING HORMONE 0.14 uIU/ml (0.34-5.60)
[2017-01-20 07:38] LABS: MAGNESIUM 1.7 mg/dL (1.6-3.0); PHOSPHOROUS 3.7 mg/dL (2.5-4.6)
[2017-01-20 07:39] LABS: BLOOD UREA NITROGEN 18 mg/dL (9-23); CALCIUM SERUM 9.2 mg/dL (8.4-10.2); CARBON DIOXIDE 30 mmol/L (22-31); CHLORIDE 98 mmol/L (100-111); CREATININE SERUM 0.6 mg/dL (0.6-1.4); GLOM FILT RATE Estimated ABOVE60 mL/min (>60); GLUCOSE FASTING 117 mg/dL (70-110); POTASSIUM 3.8 mmol/L (3.5-5.1); SODIUM 138 mmol/L (135-145)
[2017-01-20 07:43] LABS: FREE THYROXIN (T4) 1.13 ng/dL (0.58-1.64)
[2017-01-20 08:07] LABS: FREE T3 2.5 pg/mL (2.5-3.9)
[2017-01-21 11:07] LABS: HEMOGLOBIN 10.3 gm/dL (12.0-16.0); MEAN CELL VOLUME 86.9 FL (83-96); MEAN CORPUSCULAR HGB CONC 32.3 g/dL (30-36); MEAN PLATELET VOLUME 7.1 FL (6.5-11.5); RED BLOOD COUNT 3.68 X10e (3.90-5.30); RED CELL DISTRIBUTION WIDTH 16.7 % (11.0-15.5); WHITE BLOOD COUNT 10.3 X10e3 (4.0-10.5)
[2017-01-21 11:31] LABS: BLOOD UREA NITROGEN 18 mg/dL (9-23); BUN/CREATININE RATIO 25.71; CALCIUM SERUM 9.1 mg/dL (8.4-10.2); CARBON DIOXIDE 31 mmol/L (22-31); CHLORIDE 94 mmol/L (100-111); CREATININE SERUM 0.7 mg/dL (0.6-1.4); GLOM FILT RATE Estimated ABOVE60 mL/min (>60); GLUCOSE FASTING 150 mg/dL (70-110); POTASSIUM 3.8 mmol/L (3.5-5.1); SODIUM 134 mmol/L (135-145)
[2017-07-30] MEDS ORDERED: PULMICORT0.25 MG/2 INH (21:14)
[2017-07-30] MEDS ORDERED: K-DUR20 ME1 PO (21:15)
[2017-07-30] MEDS ORDERED: VITAMIN D350000 UNIT PO (21:17)
[2017-07-30] MEDS ORDERED: FUROSEMIDE40 MG PO (21:18)
[2017-07-30] MEDS ORDERED: DALIRESP500 MCG PO (21:19)
[2017-07-30] MEDS ORDERED: TUDORZA PRESS400 MCG INH (21:19)
[2017-07-30] MEDS ORDERED: ATORVASTATIN CA10 MG PO (21:20)
[2017-07-30] MEDS ORDERED: WELLBUTRIN XL150 M2 (21:21)
[2017-07-30] MEDS ORDERED: FLEXERIL10 MG PO (21:22)
[2017-07-30] MEDS ORDERED: CELEXA20 MG PO (21:22)
[2017-07-30] MEDS ORDERED: DOCUSATE SODIU100 MG PO (21:23)
[2017-07-30] MEDS ORDERED: NEURONTIN300 MG PO (21:25)
[2017-07-30] MEDS ORDERED: HYDROCODON-ACE1 EAC5 PO (21:27)
[2017-07-30] MEDS ORDERED: LIDODERM1 EACH TD (21:29)
[2017-07-30] MEDS ORDERED: LOPRESSOR PO (21:30)
[2017-07-30] MEDS ORDERED: SINGULAIR PO (21:31)
[2017-07-30] MEDS ORDERED: MUCINEX1200 MG PO (21:32)
[2017-07-30] MEDS ORDERED: PROTONIX40 M1 PO (21:33)
[2017-07-30] MEDS ORDERED: ZOFRAN ODT4 M1 PO (21:33)
[2017-07-30] MEDS ORDERED: FELDENE20 MG PO (21:34)
[2017-07-30] MEDS ORDERED: FLOMAX0.4 M1 DOB (21:34)
[2017-07-30] MEDS ORDERED: PREDNISONE10 MG PO (21:40)
[2017-07-30] MEDS ORDERED: PROAIR RESPICL90 MCG (21:42)
[2017-07-30] MEDS ORDERED: PRILOSEC PO (21:43)
== END 2017-01-21 14:42 | disposition home health service (06) | DRG 811 ==
LOC: CED 23:30 → CEDOF 01-17 02:28 → C2A 01-17 04:30
PROVIDERS: Emergency Medicine; Internal Medicine Cardiovascular Disease; Internal Medicine Pulmonary Disease; Nurse Practitioner
PROC: 30233N1 Transfusion of Nonautologous Red Blood Cells into Peripheral Vein, Percutaneous Approach (ICD-10-PCS; principal; 2017-01-17)
DX: D50.0 Iron deficiency anemia secondary to blood loss (chronic) (principal); J96.21 Acute and chronic respiratory failure with hypoxia; I95.9 Hypotension, unspecified; I11.0 Hypertensive heart disease with heart failure; S22.43XA Multiple fractures of ribs, bilateral, initial encounter for closed fracture; I50.22 Chronic systolic (congestive) heart failure; I95.2 Hypotension due to drugs; J44.1 Chronic obstructive pulmonary disease with (acute) exacerbation; Z85.3 Personal history of malignant neoplasm of breast; Z90.710 Acquired absence of both cervix and uterus; Z96.651 Presence of right artificial knee joint; Z98.49 Cataract extraction status, unspecified eye; Z87.891 Personal history of nicotine dependence; E86.0 Dehydration; Z85.118 Personal history of other malignant neoplasm of bronchus and lung; M81.0 Age-related osteoporosis without current pathological fracture; I34.0 Nonrheumatic mitral (valve) insufficiency; I37.1 Nonrheumatic pulmonary valve insufficiency; R00.2 Palpitations; R00.0 Tachycardia, unspecified; M48.00 Spinal stenosis, site unspecified; G89.29 Other chronic pain; E03.9 Hypothyroidism, unspecified; F41.9 Anxiety disorder, unspecified; T46.4X5A Adverse effect of angiotensin-converting-enzyme inhibitors, initial encounter; T44.7X5A Adverse effect of beta-adrenoreceptor antagonists, initial encounter; I25.10 Atherosclerotic heart disease of native coronary artery without angina pectoris
CPT/HCPCS: 36415; 71010; 74177; 80048; 80053; 82274; 82553; 83735; 83880; 84100; 84439; 84443; 84481; 84484; 85014; 85018; 85025; 85027; 85610; 86850; 86900; 86901; 86923; 93005; 94640; 94760; 97162; 99285; J2920; J2930; P9016; Q9967

== ENCOUNTER 2017-01-28 22:44 | Inpatient (IN) | payer MEDICARE, OTHER ==
--- NOTE | ~2017-01-28 | CR63 ---
[facility] A Service of [facility] & [facility] & [facility] RADIOLOGY TEXT RESULTS PATIENT: BERENICE MUÑIZ LOCATION: [place] [address]- : [birth year] UNIT #: [id number] AGE: [address]: Mark Dominguez MD SEX: F ORDER DR: [id number] [facility] [address] [place], [place] [address] [id number] I MR#: [id number] Acc #: [id number] NAME: BERENICE MUÑIZ. : 1945 SEX: F STUDY DATE/TIME: 01/30/2017 10:57 UNIT: [facility] ROOM: [facility] STUDY DESCRIPTION: CR Chest 2 View Attending Physician: Mark Dominguez M.D. Ordering Physician: Mark Dominguez M.D. Primary Care Physician: Christine Greenfield A.P.R.N. MEDICAL IMAGING REPORT This report is preliminary unless electronic signature is present EXAM PA and lateral views of the chest, 01/30/2017 COMPARISON January 29, 2017; January 28, 2017 and January 18, [address] chest dated January 29, 2017. INDICATION 71-year-old female with cough and dyspnea since yesterday. Possible aspiration while eating food. FINDINGS Exam is limited by the patient's facial tissues overlapping the pulmonary apices. It is noted the patient has marked thoracic spine kyphosis. Moderate sized hiatal hernia is again noted. There is stable cardiomediastinal silhouette with top normal heart size. There are calcified mediastinal lymph nodes. Evaluation for pneumothorax is limited by the patient's overlapping facial soft tissue. There is no pleural effusion or acute airspace disease. There is diffuse osteopenia of the thoracic spine limiting evaluation of the thoracic vertebral bodies. There is stable severe height loss and sclerosis of a single thoracic vertebral body at the apex of the patient's kyphosis. More inferiorly in the thoracic spine, there is single level vertebroplasty, grossly stable. Posterior lumbar spinal fusion hardware again noted, incompletely included. Healed fracture of the left mid humerus. IMPRESSION No acute radiographic abnormality of the chest. Dictated by... Enmanuel Romero M.D. [facility]. [facility] A Service of [facility] & [facility] & [facility] RADIOLOGY TEXT RESULTS PATIENT: BERENICE MUÑIZ LOCATION: [facility]1-01 : [birth year] UNIT #: [id number] AGE: [address]: Mark Dominguez MD SEX: F ORDER DR: THIS IS AN ELECTRONICALLY VERIFIED REPORT Enmanuel Romero M.D. at 02/01/2017 3:40 PM JULIEN/ky TD: 01/30/2017 22:57 JOB #: [id number] MEDICAL IMAGING REPORT Page 1 of 1 COPY
--- NOTE | ~2017-01-28 | DS ---
Unit #: [id number] #: [id number] Patient: BERENICE MUÑIZ [id number] [address] [place], [place] [address] [id number] I MR#: [id number] NAME: BERENICE MUÑIZ. ROOM: 471 Age: 71 Sex: F Admission Date: 01/29/2017 : 1945 Discharge Date: 02/04/2017 Attending Physician: Mark Dominguez M.D. Primary Care Physician: Christine Greenfield A.P.R.N. DISCHARGE SUMMARY HISTORY OF PRESENT ILLNESS This is a pleasant 71-year-old young lady with a history of severe COPD, multiple admissions in the past, who presents to the emergency department, because of hypotension. The patient is discharged from the hospital on 01/21/2017; however, at home the patient had a blood pressure in the 80s. The patient called visiting nurse, was told her to come to the emergency room. The patient had a blood pressure in the 80 systolic, given IV fluids. Your doctor wanted to admit her. The patient is not complaining any fevers, chills, cough that is no worse than usual, some fatigue, some dysuria. She has history of severe COPD, breast cancer, lung cancer, chronic kidney disease, hypothyroidism, and significant anxiety. The patient was given IV fluids. She was placed on steroids. Blood pressure improved remarkably the next day and we have been asked to see regarding acute bronchitis/pneumonia. The patient was placed on Maxipime and which was then switched to Flagyl. She was placed on Solu-Medrol, which has been converted over to prednisone. The patient improved relatively well. Sputum cultures only grew out normal respiratory lynn. The patient's shortness of breath got better. Blood pressure has remained good, therefore the patient was ready to be discharged on 02/03/2017, and the patient will be followed up in the office in 2 weeks. Sent home with home rehab. She does not want to go to a rehab facility. DISCHARGE MEDICATIONS Include guaifenesin 600 mg b.i.d., atorvastatin 10 mg at bedtime, lisinopril 2.5 mg daily, Singulair 10 mg daily, hydrocodone and acetaminophen 10/325 one tablet q.6 hours as needed for moderate pain, Aldactone 12.5 mg daily, omeprazole 20 mg b.i.d., pantoprazole 40 mg daily, roflumilast 500 mcg daily, albuterol ipratropium inhaler q.i.d. and as needed, Pulmicort 0.5 mg q.12, Perforomist 2 mL neb b.i.d., hydrocortisone two tablets t.i.d. for one day, one tablet t.i.d. for 3 days, one tablet b.i.d. for 3 days and half tablet b.i.d. for 14 days with five refills, tamsulosin 0.4 mg daily, gabapentin 300 mg b.i.d., bupropion 150 mg b.i.d., citalopram 20 mg daily, Zofran 4 mg as needed for nausea, lidocaine patch topical daily, metoprolol 25 mg b.i.d., docusate 100 mg daily, furosemide 20 mg daily, Flexeril 10 mg b.i.d. as needed, ergocalciferol 50,000 units weekly on Tuesday. DIET The patient's diet is no concentrated salt, no concentrated sweets. Thank you very much for this consult, allowing us to participate in the care of this patient. Please page me at [phone] if you have any questions. Unit #: [id number] #: [id number] Patient: BERENICE MUÑIZ Dictated by... Verena Duval/merrick TD: 02/04/2017 03:54 JOB #: [id number] DISCHARGE SUMMARY Page 1 of 1 X Adan Benral MD X DISCHARGE SUMMARY
--- NOTE | ~2017-01-28 | CR63 ---
[facility] A Service of [facility] & [facility] RADIOLOGY TEXT RESULTS PATIENT: BERENICE MUÑIZ LOCATION: [place] [address] : [birth year] UNIT #: [id number] AGE: [address]: Mark Dominguez MD SEX: F ORDER DR: [id number] [facility] [address] [place], [place] [address] [id number] I MR#: [id number] Acc #: [id number] NAME: BERENICE MUÑIZ. : 1945 SEX: F STUDY DATE/TIME: 02/03/2017 7:39 UNIT: [facility] ROOM: [facility] STUDY DESCRIPTION: CR Chest 2 View Attending Physician: Mark Dominguez M.D. Ordering Physician: Mark Dominguez M.D. Primary Care Physician: Christine Greenfield A.P.R.N. MEDICAL IMAGING REPORT This report is preliminary unless electronic signature is present EXAM PA and lateral chest. INDICATION 71-year-old female with shortness of breath since Tuesday. COMPARISON STUDIES Comparison with 01/31/2017. FINDINGS Stable low-volume inspiration. No new infiltrates. Calcified mediastinal lymph nodes. Heart size is stable. Stable increased thoracic kyphosis with thoracic compression deformities and prior vertebral augmentations. IMPRESSION No significant change in the appearance of the chest. Dictated by... Vadim Ortiz M.D. THIS IS AN ELECTRONICALLY VERIFIED REPORT Vadim Ortiz M.D. at 02/03/2017 4:33 PM EN/ronak TD: 02/03/2017 10:41 JOB #: [id number] MEDICAL IMAGING REPORT Page 1 of 1 COPY
--- NOTE | ~2017-01-28 | CR72 ---
[facility] A Service of [facility] RADIOLOGY TEXT RESULTS PATIENT: BERENICE MUÑIZ LOCATION: [place] [address] : [birth year] UNIT #: [id number] AGE: [address]: Mark Dominguez MD SEX: F ORDER DR: [id number] [facility] [address] [place], [place] [address] [id number] I MR#: [id number] Acc #: [id number] NAME: BERENICE MUÑIZ. : 1945 SEX: F STUDY DATE/TIME: 01/28/2017 23:14 UNIT: [facility] ROOM: [facility] STUDY DESCRIPTION: CR Chest Single View Portable Attending Physician: Mark Dominguez M.D. Ordering Physician: Tony Dietz M.D. Primary Care Physician: Christine Greenfield A.P.R.N. MEDICAL IMAGING REPORT This report is preliminary unless electronic signature is present EXAM Frontal chest, 01/28/2017. INDICATION Shortness of air and weakness, COPD, symptoms began today in a 71-year-old female. TECHNIQUE Frontal chest compared with 01/18/2017. FINDINGS Cardiac silhouette is stable. The aorta demonstrates tortuosity. There is old healed granulomatous disease. Vascularity is within normal limits. No effusion or dense consolidation. Underlying probable fibrosis and scarring. No pneumothorax. Hiatal hernia. IMPRESSION 1. Chronic-appearing lung changes. No definite superimposed active disease. No pneumothorax. 2. Hiatal hernia. Dictated by... Bob Adams M.D. THIS IS AN ELECTRONICALLY VERIFIED REPORT Bob Adams M.D. at 01/29/2017 10:14 PM TUAN/ronak TD: 01/29/2017 12:19 JOB #: [id number] [facility] A Service of [facility] RADIOLOGY TEXT RESULTS PATIENT: BERENICE MUÑIZ LOCATION: [place] [address] : [birth year] UNIT #: [id number] AGE: [address]: Mark Dominguez MD SEX: F ORDER DR: MEDICAL IMAGING REPORT Page 1 of 1 COPY
--- NOTE | ~2017-01-28 | CR72 ---
[facility] A Service of [facility] & [facility] RADIOLOGY TEXT RESULTS PATIENT: BERENICE MUÑIZ LOCATION: [place] [address] : [birth year] UNIT #: [id number] AGE: [address]: Mark Dominguez MD SEX: F ORDER DR: [id number] [facility] [address] [place], [place] [address] [id number] I MR#: [id number] Acc #: [id number] NAME: BERENICE MUÑIZ. : 1945 SEX: F STUDY DATE/TIME: 01/29/2017 15:48 UNIT: [facility] ROOM: [facility] STUDY DESCRIPTION: CR Chest Single View Portable Attending Physician: Mark Dominguez M.D. Ordering Physician: Mark Dominguez M.D. Primary Care Physician: Christine Greenfield A.P.R.N. MEDICAL IMAGING REPORT This report is preliminary unless electronic signature is present EXAM Portable chest HISTORY Hypotension for 3 days. Suspected aspiration today. FINDINGS Small to moderate sized hiatal hernia, similar to yesterday. Cardiac and mediastinal contours are normal. Relatively low lung volumes. No airspace infiltrates or effusions. Small calcified mediastinal and hilar nodes. IMPRESSION No acute findings and no active disease. Small to moderate sized hiatal hernia. Dictated by... Ankit Wan M.D. THIS IS AN ELECTRONICALLY VERIFIED REPORT Ankit Wan M.D. at 01/30/2017 5:14 PM DFL/rnr TD: 01/30/2017 05:44 JOB #: [id number] MEDICAL IMAGING REPORT Page 1 of 1 COPY
--- NOTE | ~2017-01-28 | CR63 ---
[facility] A Service of [facility] & [facility] RADIOLOGY TEXT RESULTS PATIENT: BERENICE MUÑIZ LOCATION: [place] [address] : 47 UNIT #: [id number] AGE: [address]: Mark Dominguez MD SEX: F ORDER DR: [id number] [facility] [address] [place], [place] [address] [id number] I MR#: [id number] Acc #: [id number] NAME: BERENICE MUÑIZ. : 1945 SEX: F STUDY DATE/TIME: 01/31/2017 11:39 UNIT: [facility] ROOM: [facility] STUDY DESCRIPTION: CR Chest 2 View Attending Physician: Mark Dominguez M.D. Ordering Physician: Mark Dominguez M.D. Primary Care Physician: Christine Greenfield A.P.R.N. MEDICAL IMAGING REPORT This report is preliminary unless electronic signature is present EXAM PA and lateral chest 01/31/2017 INDICATIONS 71-year-old female with history shortness of breath since yesterday. COMPARISON STUDIES Comparison with yesterday. FINDINGS No new infiltrates. Heart size stable. Hiatal hernia. Calcified hilar and mediastinal lymph nodes. Increased thoracic kyphosis. IMPRESSION No significant change in appearance of the chest. Dictated by... Vadim Ortiz M.D. THIS IS AN ELECTRONICALLY VERIFIED REPORT Vadim Ortiz M.D. at 02/01/2017 10:00 AM [place] TD: 01/31/2017 18:23 JOB #: [id number] MEDICAL IMAGING REPORT Page 1 of 1 COPY
--- NOTE | ~2017-01-28 | CT16 ---
[facility] A Service of [facility] RADIOLOGY TEXT RESULTS PATIENT: BERENICE MUÑIZ LOCATION: [place] [address]- : [birth year] UNIT #: [id number] AGE: [address]: Mark Dominguez MD SEX: F ORDER DR: [id number] [facility] [address] [place], [place] [address] [id number] I MR#: [id number] Acc #: [id number] NAME: BERENICE MUÑIZ : 1945 SEX: F STUDY DATE/TIME: 01/29/2017 0:54 UNIT: [facility] ROOM: 461 STUDY DESCRIPTION: CT Angio Chest for PE Attending Physician: Mark Dominguez M.D. Ordering Physician: Tony Dietz M.D. Primary Care Physician: Christine Greenfield A.P.R.N. MEDICAL IMAGING REPORT This report is preliminary unless electronic signature is present REVISED REPORT SEE ADDENDUM EXAM CT angiogram chest, PE protocol, with contrast 01/29/2017 INDICATIONS A 71-year-old female with pneumonia and COPD, congestive heart failure, lethargic and week for a week. Difficulty breathing, hypotension, symptoms 1 week ago, persist. Back and rib pain. TECHNIQUE This CT exam was performed with one or more of the following radiation dose reduction techniques: automatic exposure control, adjustment of mA and/or kV according to patient size, and iterative reconstruction. Contrast enhanced CT scan chest PE protocol was performed with 3-D reformats. COMPARISON STUDIES 07/27/[address] chest: IV bolus adequate. The aorta demonstrates ectasia and atherosclerotic change. There is no aneurysm or dissection. There is no evidence of acute pulmonary embolus in the central pulmonary dural tree. Included thyroid unremarkable. No axillary or mediastinal adenopathy. There is old healed granulomatous disease. Large hiatal hernia and partial intrathoracic stomach. Included upper abdomen demonstrates old healed granulomatous disease in the spleen and liver, but no acute finding. Lungs are emphysematous. No effusion. There is probable atelectasis or less likely pneumonia in the right lung base. There is no convincing evidence of volume overload or interstitial edema. [facility] A Service [facility] RADIOLOGY TEXT RESULTS PATIENT: BERENICE MUÑIZ LOCATION: [place] [address] : 47 UNIT #: [id number] AGE: [address]: Mark Dominguez MD SEX: F ORDER DR: There is thoracic kyphosis and spondylosis. Chronic compression fracture of T8. New kyphoplasty/vertebroplasty change of T12. IMPRESSION 1. No aortic aneurysm or dissection 2. No PE 3. Probable atelectasis or less likely pneumonia in the right lung base. 4. Underlying emphysema 5. There is a chronic compression fracture deformity of T8. Interval kyphoplasty/vertebroplasty change at T12. 6. Large hiatal hernia. Dictated by... Bob Adams M.D. THIS IS AN ELECTRONICALLY VERIFIED REPORT Bob Adams M.D. at 01/29/2017 10:11 PM TUAN/sebastian TD: 01/29/2017 13:13 JOB #: [id number] ADDENDUM CT of the chest PE protocol 01/29/2017 ADDENDUM Previously documented upper lobe right paratracheal nodule measuring 10 x 17 mm is very difficult to visualize on the current study and measures only about 13 x 9 mm. There are chronic-appearing rib fractures on the left involving the 10th, 9th, 8th, 7th ribs. There are new potentially subacute to acute rib fractures on the right involving the 7th, 8th and 9th ribs. STAT * RESULT Dictated by... Bob Adams M.D. THIS IS AN ELECTRONICALLY VERIFIED REPORT [facility] A Service [facility] RADIOLOGY TEXT RESULTS PATIENT: BERENICE MUÑIZ LOCATION: [place] [address] : 47 UNIT #: [id number] AGE: [address]: Mark Dominguez MD SEX: F ORDER DR: Bob Adams M.D. at 01/31/2017 10:03 PM TUAN/alfredo TD: 01/29/2017 01:35 JOB #: [id number] CC: Familia/demi Please Delete MEDICAL IMAGING REPORT Page 1 of 1 COPY
--- NOTE | ~2017-01-28 | CT2 ---
[facility] A Service of [facility] & [facility] RADIOLOGY TEXT RESULTS PATIENT: BERENICE MUÑIZ LOCATION: [facility] [id number] : 47 UNIT #: [id number] AGE: [address]: Mark Dominguez MD SEX: F ORDER DR: [id number] [facility] [address] [place], [place] [address] [id number] I MR#: [id number] Acc #: [id number] NAME: BERENICE MUÑIZ. : 1945 SEX: F STUDY DATE/TIME: 01/29/2017 0:54 UNIT: [facility] ROOM: [facility] STUDY DESCRIPTION: CT Abd and Pelv W Cont Attending Physician: Mark Dominguez M.D. Ordering Physician: Tony Dietz M.D. Primary Care Physician: Christine Greenfield A.P.R.N. MEDICAL IMAGING REPORT This report is preliminary unless electronic signature is present EXAM Abdomen and pelvis CT with contrast, 01/29/2017. INDICATION Lethargy, weakness, difficulty breathing, hypotension, back and rib pain for a week, history of COPD. Lung cancer, difficulty urinating. TECHNIQUE Contrast-enhanced abdomen and pelvis CT was performed. This CT exam was performed with one or more of the following radiation dose reduction techniques: automatic exposure control, adjustment of mA and/or kV according to patient size, and iterative reconstruction. COMPARISON 01/20/[address] ABDOMEN: Please see separately dictated chest CT same date for further details regarding chest findings. There is atelectasis or less likely pneumonia in the right lung base. The lungs are emphysematous. No effusion. Large hiatal hernia and partial intrathoracic stomach. Aorta demonstrates atherosclerotic change. There is no aneurysm or dissection. There are granulomatous calcifications in the spleen and liver and the adrenal glands are unremarkable. Pancreas unremarkable. Gallbladder unremarkable. Liver demonstrates tiny cysts in the left hepatic lobe that are unchanged. Prominent right renal pelvis unchanged. No new hydronephrosis of either kidney. CT PELVIS: Bladder unremarkable. Uterus surgically absent. There is no free fluid or drainable fluid collection in the pelvis. Moderate stool burden in the colon. Appendix normal. No inflammatory change of the STS. [facility] A Service of [facility] & [facility] RADIOLOGY TEXT RESULTS PATIENT: BERENICE MUÑIZ LOCATION: [facility] [id number] : [birth year] UNIT #: [id number] AGE: [address]: Mark Dominguez MD SEX: F ORDER DR: bowel or bowel obstruction. Inguinal canals unremarkable. Small umbilical hernia containing fat only. There are postoperative changes involving the lumbar spine spanning the L3-L5 levels. There is antegrade listhesis of L4 on L5, grade 1 in degree. Compression fracture deformity of the inferior endplate of L1 is stable. Kyphoplasty/vertebroplasty change at T12 again noted. No significant change. There are acute to subacute rib fractures on the right involving the 9th, 8th, and 7th ribs. Chronic-appearing left-sided rib fractures. IMPRESSION 1. No clearly acute process in the abdomen or pelvis. No bowel obstruction, drainable fluid collection, or focal area of inflammatory change. Appendix normal. 2. Acute to subacute rib fractures on the right involving the 9th, 8th, and 7th ribs and perhaps the 10th rib as well. 3. Chronic compression fracture deformities and postoperative changes in the thoracolumbar spine. 4. Surgical absence of the uterus. 5. Large hiatal hernia. Dictated by... Bob Adams M.D. THIS IS AN ELECTRONICALLY VERIFIED REPORT Bob Adams M.D. at 01/29/2017 10:11 PM TUAN/ronak TD: 01/29/2017 13:25 JOB #: [id number] MEDICAL IMAGING REPORT Page 1 of 1 COPY
--- NOTE | ~2017-01-28 | EKG ---
PATIENT: BERENICE MUÑIZ UNIT #: [id number] Ventricular Rate: 76 BPM Atrial Rate: 76 BPM P-R Interval: 152 ms QRS Duration: 90 ms Q-T Interval: 430 ms QTC Calculation(Bezet): 483 ms P Garrison: 29 degrees Calculated R Garrison: 16 degrees Calculated T Garrison: 50 degrees Diagnosis Line: Normal sinus rhythm with sinus arrhythmia Diagnosis Line: Normal ECG Diagnosis Line: When compared with ECG of 16-JAN-2017 23:14, Diagnosis Line: Premature ventricular complexes are no longer Diagnosis Line: Present Diagnosis Line: Vent. rate has decreased BY 42 BPM Diagnosis Line: ST no longer depressed in Inferior leads Diagnosis Line: Nonspecific T wave abnormality no longer evident Diagnosis Line: in Inferior leads Diagnosis Line: T wave inversion no longer evident in Lateral Diagnosis Line: leads Diagnosis Line: Confirmed by UMAIR TIRADO MD ([id number]) on 01/30/2017 Diagnosis Line: 7:24:26 AM INTERPRETING MD: CELESTINO KELSEY
--- NOTE | ~2017-01-28 | HP ---
Unit #: [id number] #: [id number] Patient: BERENICE MUÑIZ [id number] [address] [place], [place] [address] [id number] I MR#: [id number] NAME: BERENICE MUÑIZ. ROOM: 461 Age: 71 Sex: F Admission Date: 01/29/2017 : 1945 Attending Physician: Mark Dominguez M.D. Primary Care Physician: Christine Greenfield A.P.R.N. HISTORY AND PHYSICAL She was admitted early this morning technically that would be today. HISTORY OF PRESENT ILLNESS Ms. Muñiz is a 71-year-old female with a history of severe basically end-stage COPD with multiple admissions over the last year, now presents to the ER because of hypotension. She was just discharged from this hospital on 01/21/2017; however, at home, yesterday, she had a blood pressure in the 80s and the family called the visiting nurse and therefore I told her to come to the ER. In the ER, she had blood pressure in the 80s, was given IV fluids and came up, but the ER doctor wanted to admit her. She really is not complaining of any true fever. She says her normal temp is under 98 and she had a temp of 98.9, therefore she had a fever, but basically she has not had what really is a fever. She has a mild cough no worse than usual. She denies dysuria. Past medical history is significant for severe COPD, basically end-stage. It is notable that she had hypotension before and in fact, she was sent to the ER by home health, because her blood pressure was low on 01/17/2017. Other past medical history is significant for congestive heart failure, breast cancer, lung cancer, chronic kidney disease, hypothyroidism, anxiety disorder. PAST SURGICAL HISTORY Include hysterectomy, bladder suspension, carpal tunnel, back surgery, retrotrapezium repair, right knee replacement, cataract surgery, breast lumpectomy, neck abscess drained, wrist surgery, teeth extraction, hemorrhoidectomy. MEDICATIONS On admission included vitamin D 50,000 units p.o. daily, Combivent MDI, Aldactone 12.5 mg p.o. daily, Lipitor 10 mg p.o. at bedtime, Protonix 40 mg p.o. daily, Flomax 0.4 mg daily, Zofran 4 mg q.4 hours, Prilosec 20 mg p.o. b.i.d., guaifenesin 600 mg p.o. b.i.d., Sandy 10/325 q.6, Perforomist in the nebulizer b.i.d., Pulmicort 0.5 mg in the nebulizer b.i.d., lisinopril 5 mg p.o. daily, albuterol mini nebs q.i.d., Lidoderm patch topically, Singulair 10 mg p.o. daily, bupropion 150 mg p.o. b.i.d., Colace 100 mg p.o. daily, Daliresp 500 mcg p.o. daily, metoprolol 25 mg p.o. b.i.d., gabapentin 300 mg p.o. b.i.d., Celexa 20 mg p.o. daily, Flexeril 10 mg p.o. b.i.d., Lasix 20 mg p.o. daily. ALLERGIES Morphine, Cipro; although, she has tolerated Levaquin. SOCIAL HISTORY Unit #: [id number] #: [id number] Patient: BERENICE MUÑIZ She did smoke, but she quit about 2 or 3 years ago. FAMILY HISTORY Significant for a sister and a brother and one of her parents with lung disease. REVIEW OF SYSTEMS She had a little bit of nausea, no vomiting or diarrhea. She said the last time she choked on food was a while ago, that is only several days. She has occasional leg swelling. She denies any itching. She denies any recent rashes. She denied dysuria. All other systems are negative except as mentioned. PHYSICAL EXAMINATION GENERAL: She presents as an older female, in no acute distress. VITAL SIGNS: Temperature was 98.2 and though the highest I can find is may be 98.6. Heart rate 87, respirations 16, blood pressure 132/74, lowest blood pressure this whole time was 89/51, but the last few were 132/74, 142/71, 132/64. NECK: Without adenopathy. LUNGS: Reveals that her breathing is not labored. She had a few inspiratory crackles at the bases bilaterally, she has expiratory wheezes bilaterally. HEART: Regular. ABDOMEN: Soft and bowel sounds are present. She is little tender diffusely. EXTREMITIES: Without edema. She does have some bruising on her arms. DIAGNOSTIC STUDIES IMAGING STUDIES: Chest CT was done as a PE protocol and there was no pulmonary embolism. She had very significant emphysematous changes. I saw no definite infiltrate. The radiologist read it as cannot rule out an infiltrate. Right lung base although it is probably atelectasis. There is a compression fracture T8. There is a large hiatal hernia. They also did a CT abdomen, which revealed multiple rib fractures, but I think that is already known from her recent admission. No clearly acute process in the abdomen or pelvis. That is no bowel obstruction. Drainable fluid collection. Focal areas of inflammatory change. Appendix looked normal to them. LABORATORY RESULTS: Blood gas 7.43, pCO2 of 51, PO2 of 159. Serum chemistries; BUN 17, creatinine 0.7. Rest of the chemistries basically normal. Her white blood cell count was 10,400, H and H of 9.5 and 28.9, 379,000 platelets. Urinalysis revealed 0 to 2 white blood cell count. They did not think that a urine culture was indicated. IMPRESSION 1. Hypotension, which is a recurrent problem and really not a problem that she has been in here. I think it is possibly related to her medicines and she has multiple medicines that could be doing this including the Aldactone, Flomax, lisinopril, metoprolol, Lasix, gabapentin, and the question is which one to decrease. I probably would immediately decrease her lisinopril and then see how she does. 2. Note that while she was here, she choked on a piece of hamburger. This will need to be evaluated with a swallowing evaluation. I will check blood cultures, urine culture, sputum if possible, and procalcitonin. She receive clindamycin and Rocephin for a very short period of time and we will stop if nothing develops. Final consideration of course would be Unit #: [id number] #: [id number] Patient: BERENICE MUÑIZ A adrenal insufficiency, because she came in not on steroids, but I have already started her on Solu-Medrol. Dictated by Verena Parks/merrick TD: 01/29/2017 20:30 JOB #: [id number] HISTORY AND PHYSICAL Page 1 of 1 X Mark Dominguez MD HISTORY AND PHYSICAL
[2017-01-28 22:42] LABS: ARTERIAL BLD GAS O2 SATURATION 98.1 % (90.0-100.0); ARTERIAL BLOOD GAS CARBOXY HB 0.3 %sat (0.0-9.0); ARTERIAL BLOOD GAS HCO3 34.2 mmol/L; ARTERIAL BLOOD GAS MET HB 1.1 %sat (0.0-2.0); ARTERIAL BLOOD GAS PCO2 51.1 mmHg (35.0-45.0); ARTERIAL BLOOD GAS pH 7.434 (7.350-7.450); ARTERIAL DRAW? YES
[2017-01-28 22:43] LABS: ARTERIAL BLOOD GAS ALLEN TEST NORMAL; ARTERIAL BLOOD GAS ART SITE RIGHT RADIAL; ARTERIAL BLOOD GAS DELIVERY NASAL CANNULA
[2017-01-28 22:45] LABS: POC - CKMB <1.0 ng/mL (0.0-7.9); POC - TROPONIN <0.05 ng/mL (<=0.05)
[2017-01-28 22:50] LABS: BASOPHIL% 0.3 % (0-2.5); EOSINOPHIL# 0.3 X10e3 (0-0.7); EOSINOPHIL% 2.7 % (0.0-7.0); HEMATOCRIT 28.9 % (35.0-45.0); HEMOGLOBIN 9.3 gm/dL (12.0-16.0); LYMPHOCYTE# 2.3 X10e3 (1.0-3.5); LYMPHOCYTE% 22.6 % (17.0-45.0); MEAN CELL VOLUME 86.7 FL (83-96); MEAN CORPUSCULAR HGB CONC 32.3 g/dL (30-36); MONOCYTE% 9.8 % (3.0-12.0); NEUTROPHIL# 6.6 X10e3 (1.5-7.1); NEUTROPHIL% 64.6 % (40-75); PLATELET COUNT 413 X10e3 (140-420); RED BLOOD COUNT 3.33 X10e (3.90-5.30); RED CELL DISTRIBUTION WIDTH 17.3 % (11.0-15.5); WHITE BLOOD COUNT 10.2 X10e3 (4.0-10.5)
[2017-01-28 22:53] LABS: DIFF IND YES
[2017-01-28 23:01] LABS: INR 0.9; PARTIAL THROMBOPLASTIN TIME 23.3 SECONDS (23.5-31.3); PROTHROMBIN TIME (PATIENT) 9.9 SECONDS (9.6-11.5)
[2017-01-28 23:13] LABS: ALBUMIN SERUM 3.5 g/dL (3.5-5.0); BILIRUBIN, DIRECT 0.1 mg/dL (0.0-0.2); BILIRUBIN,INDIRECT 0.1 mg/dL (0.0-0.9); BILIRUBIN,TOTAL 0.2 mg/dL (0.2-2.0); CALCIUM SERUM 9.1 mg/dL (8.4-10.2); GLOM FILT RATE Estimated 57.5 mL/min (>60); POTASSIUM 4.6 mmol/L (3.5-5.1); PROTEIN TOTAL SERUM 5.6 g/dL (6.0-8.3)
[2017-01-28 23:18] LABS: PLATELET ESTIMATE INCREASED (NORMAL)
[2017-01-28 23:19] LABS: ANISOCYTOSIS MOD; OVALOCYTES PRESENT; TEAR DROP CELLS PRESENT
[2017-01-28 23:20] LABS: STOMATOCYTE PRESENT
[2017-01-28 23:44] LABS: URINE SOURCE CLEAN CATCH
[2017-01-28 23:47] LABS: URINE APPEARANCE CLEAR; URINE BILIRUBIN NEG (NEG); URINE BLOOD NEG (NEG); URINE COLOR YELLOW; URINE GLUCOSE NEG (NEG); URINE KETONE NEG (NEG); URINE LEUKOCYTE ESTERASE TRACE (NEG); URINE NITRATE NEG (NEG); URINE PH 7.5 (5-8); URINE PROTEIN NEG (NEG); URINE UROBILINOGEN 0.2 MG/DL (NEG)
[2017-01-28 23:50] LABS: CULTURE INDICATED? NO; URBCS1 AUWI 0-2 /[HPF] (0-2); URINE BACTERIA AUWI NEG (NEGATIVE); URINE SQUAMOUS EPITHELIAL CELL NONE SEEN /[HPF]; UWBCS1 AUWI 0-2 (0-5)
[2017-01-29 02:07] LABS: POC - CKMB <1.0 ng/mL (0.0-7.9); POC - TROPONIN <0.05 ng/mL (<=0.05)
[2017-01-29 03:11] LABS: BUN/CREATININE RATIO 24.28; CALCIUM SERUM 8.7 mg/dL (8.4-10.2); CREATININE SERUM 0.7 mg/dL (0.6-1.4); GLOM FILT RATE Estimated 88.4 mL/min (>60); POTASSIUM 4.1 mmol/L (3.5-5.1)
[2017-01-29 04:28] LABS: BASOPHIL% 0.4 % (0-2.5); EOSINOPHIL% 0.2 % (0.0-7.0); HEMATOCRIT 28.9 % (35.0-45.0); HEMOGLOBIN 9.5 gm/dL (12.0-16.0); LYMPHOCYTE# 0.6 X10e3 (1.0-3.5); MEAN CELL VOLUME 87.3 FL (83-96); MEAN CORPUSCULAR HEMOGLOBIN 28.7 PG (28-34); MEAN CORPUSCULAR HGB CONC 32.8 g/dL (30-36); MONOCYTE# 0.1 X10e3 (0-1.0); MONOCYTE% 0.6 % (3.0-12.0); NEUTROPHIL# 9.7 X10e3 (1.5-7.1); NEUTROPHIL% 92.8 % (40-75); PLATELET COUNT 379 X10e3 (140-420); RED BLOOD COUNT 3.31 X10e (3.90-5.30); RED CELL DISTRIBUTION WIDTH 16.9 % (11.0-15.5); WHITE BLOOD COUNT 10.4 X10e3 (4.0-10.5)
[2017-01-29 04:31] LABS: DIFF IND NO
[2017-01-30 02:31] LABS: HEMATOCRIT 25.2 % (35.0-45.0); HEMOGLOBIN 8.2 gm/dL (12.0-16.0); MEAN CELL VOLUME 86.9 FL (83-96); MEAN CORPUSCULAR HEMOGLOBIN 28.1 PG (28-34); MEAN CORPUSCULAR HGB CONC 32.4 g/dL (30-36); MEAN PLATELET VOLUME 7.2 FL (6.5-11.5); RED BLOOD COUNT 2.9 X10e (3.90-5.30); WHITE BLOOD COUNT 11.8 X10e3 (4.0-10.5)
[2017-01-30 02:54] LABS: BLOOD UREA NITROGEN 22 mg/dL (9-23); BUN/CREATININE RATIO 31.42; CALCIUM SERUM 8.4 mg/dL (8.4-10.2); CARBON DIOXIDE 27 mmol/L (22-31); CHLORIDE 102 mmol/L (100-111); CREATININE SERUM 0.7 mg/dL (0.6-1.4); GLOM FILT RATE Estimated 88.4 mL/min (>60); GLUCOSE FASTING 145 mg/dL (70-110); POTASSIUM 4.4 mmol/L (3.5-5.1); SODIUM 136 mmol/L (135-145)
[2017-01-30 03:07] LABS: PROCALCITONIN <0.05 NG/ML
[2017-01-31 03:36] LABS: HEMATOCRIT 26.1 % (35.0-45.0); HEMOGLOBIN 8.3 gm/dL (12.0-16.0); LYMPHOCYTE# 0.7 X10e3 (1.0-3.5); LYMPHOCYTE% 7.1 % (17.0-45.0); MEAN CELL VOLUME 88.3 FL (83-96); MEAN CORPUSCULAR HGB CONC 31.7 g/dL (30-36); MEAN PLATELET VOLUME 7.7 FL (6.5-11.5); MONOCYTE# 0.2 X10e3 (0-1.0); MONOCYTE% 1.9 % (3.0-12.0); PLATELET COUNT 312 X10e3 (140-420); RED BLOOD COUNT 2.96 X10e (3.90-5.30); RED CELL DISTRIBUTION WIDTH 17.3 % (11.0-15.5); WHITE BLOOD COUNT 9.9 X10e3 (4.0-10.5)
[2017-01-31 03:48] LABS: DIFF IND NO
[2017-02-01 05:06] LABS: HEMATOCRIT 27.2 % (35.0-45.0); HEMOGLOBIN 8.6 gm/dL (12.0-16.0); MEAN CELL VOLUME 87.7 FL (83-96); MEAN CORPUSCULAR HEMOGLOBIN 27.9 PG (28-34); MEAN CORPUSCULAR HGB CONC 31.8 g/dL (30-36); MEAN PLATELET VOLUME 7.5 FL (6.5-11.5); RED BLOOD COUNT 3.1 X10e (3.90-5.30); RED CELL DISTRIBUTION WIDTH 16.9 % (11.0-15.5); WHITE BLOOD COUNT 11.1 X10e3 (4.0-10.5)
[2017-02-01 06:23] LABS: THYROID STIMULATING HORMONE 0.17 uIU/ml (0.34-5.60)
[2017-02-01 06:30] LABS: FREE THYROXIN (T4) 0.89 ng/dL (0.58-1.64)
[2017-02-02 04:37] LABS: ALBUMIN SERUM 2.9 g/dL (3.5-5.0); BILIRUBIN,TOTAL 0.3 mg/dL (0.2-2.0); BUN/CREATININE RATIO 26.66; CALCIUM SERUM 8.1 mg/dL (8.4-10.2); CREATININE SERUM 0.6 mg/dL (0.6-1.4); POTASSIUM 4.3 mmol/L (3.5-5.1); PROTEIN TOTAL SERUM 4.8 g/dL (6.0-8.3)
[2017-02-04] MEDS ORDERED: HYDROCORTISONE20 MG PO ×4 (10:43→10:52)
[2017-07-30] MEDS ORDERED: PULMICORT0.25 MG/2 INH (21:14)
[2017-07-30] MEDS ORDERED: K-DUR20 ME1 PO (21:15)
[2017-07-30] MEDS ORDERED: VITAMIN D350000 UNIT PO (21:17)
[2017-07-30] MEDS ORDERED: FUROSEMIDE40 MG PO (21:18)
[2017-07-30] MEDS ORDERED: DALIRESP500 MCG PO (21:19)
[2017-07-30] MEDS ORDERED: TUDORZA PRESS400 MCG INH (21:19)
[2017-07-30] MEDS ORDERED: ATORVASTATIN CA10 MG PO (21:20)
[2017-07-30] MEDS ORDERED: WELLBUTRIN XL150 M2 (21:21)
[2017-07-30] MEDS ORDERED: FLEXERIL10 MG PO (21:22)
[2017-07-30] MEDS ORDERED: CELEXA20 MG PO (21:22)
[2017-07-30] MEDS ORDERED: DOCUSATE SODIU100 MG PO (21:23)
[2017-07-30] MEDS ORDERED: NEURONTIN300 MG PO (21:25)
[2017-07-30] MEDS ORDERED: HYDROCODON-ACE1 EAC5 PO (21:27)
[2017-07-30] MEDS ORDERED: LIDODERM1 EACH TD (21:29)
[2017-07-30] MEDS ORDERED: LOPRESSOR PO (21:30)
[2017-07-30] MEDS ORDERED: SINGULAIR PO (21:31)
[2017-07-30] MEDS ORDERED: MUCINEX1200 MG PO (21:32)
[2017-07-30] MEDS ORDERED: ZOFRAN ODT4 M1 PO (21:33)
[2017-07-30] MEDS ORDERED: PROTONIX40 M1 PO (21:33)
[2017-07-30] MEDS ORDERED: FLOMAX0.4 M1 DOB (21:34)
[2017-07-30] MEDS ORDERED: FELDENE20 MG PO (21:34)
[2017-07-30] MEDS ORDERED: PREDNISONE10 MG PO (21:40)
[2017-07-30] MEDS ORDERED: PROAIR RESPICL90 MCG (21:42)
[2017-07-30] MEDS ORDERED: PRILOSEC PO (21:43)
== END 2017-02-04 12:20 | disposition home health service (06) | DRG 312 ==
LOC: CED 22:44 → CEDOF 01-29 02:10 → C4C 01-29 04:56
PROVIDERS: Emergency Medicine; Internal Medicine Pulmonary Disease; Registered Nurse
PROC: B32TYZZ Computerized Tomography (CT Scan) of Left Pulmonary Artery using Other Contrast (ICD-10-PCS; principal; 2017-01-29)
PROC: B32SYZZ Computerized Tomography (CT Scan) of Right Pulmonary Artery using Other Contrast (ICD-10-PCS; 2017-01-29)
DX: I95.2 Hypotension due to drugs (principal); I50.21 Acute systolic (congestive) heart failure; J96.10 Chronic respiratory failure, unspecified whether with hypoxia or hypercapnia; J44.9 Chronic obstructive pulmonary disease, unspecified; J44.1 Chronic obstructive pulmonary disease with (acute) exacerbation; I13.0 Hypertensive heart and chronic kidney disease with heart failure and stage 1 through stage 4 chronic kidney disease, or unspecified chronic kidney disease; Z88.1 Allergy status to other antibiotic agents; Z88.5 Allergy status to narcotic agent; Z85.3 Personal history of malignant neoplasm of breast; Z85.118 Personal history of other malignant neoplasm of bronchus and lung; E03.9 Hypothyroidism, unspecified; Z90.710 Acquired absence of both cervix and uterus; Z96.651 Presence of right artificial knee joint; F17.210 Nicotine dependence, cigarettes, uncomplicated; Z98.49 Cataract extraction status, unspecified eye; Z83.6 Family history of other diseases of the respiratory system; N18.9 Chronic kidney disease, unspecified
CPT/HCPCS: 36415; 36600; 71010; 71020; 71275; 74177; 80048; 80053; 80076; 81003; 82308; 82533; 82553; 82803; 82947; 83605; 83880; 84439; 84443; 84484; 85025; 85027; 85610; 85730; 86850; 86900; 86901; 87040; 87070; 87086; 87205; 92526; 92610; 93005; 94640; 94760; 96361; 96374; 97162; 99285; G8978-GP; G8979-GP; G8980-GP; G8996-GN; G8997-GN; G8998-GN; J0692; J0833; J2920; J2930; Q9967

== ENCOUNTER 2017-02-20 19:19 | Inpatient (IN) | payer MEDICARE, OTHER ==
--- NOTE | ~2017-02-20 | HP ---
Unit #: [id number] #: [id number] Patient: BERENICE MUÑIZ [id number] [address] [place], [place] [address] [id number] I MR#: [id number] NAME: BERENICE MUÑIZ. ROOM: 332 Age: 71 Sex: F Admission Date: 02/20/2017 : 1945 Attending Physician: Mark Dominguez M.D. Primary Care Physician: Christine Greenfield A.P.R.N. HISTORY AND PHYSICAL HISTORY OF PRESENT ILLNESS Ms. Muñiz was just recently discharged with history of COPD exacerbation, acute renal insufficiency on chronic kidney disease, anxiety. Patient was sent home on prednisone slow taper due to adrenal insufficiency. However, patient now presents with a history of worsening dizziness, fatigue, low blood pressure, weakness on her legs, worsening shortness of air. There is some cough productive of green sputum but there are no fevers, no chills, no nausea, no vomiting, no diarrhea. We have been asked to admit for probable adrenal insufficiency, presyncope. PAST SURGICAL HISTORY Significant for: 1. Hysterectomy. 2. Bladder suspension. 3. Carpal tunnel. 4. Back surgery. 5. Trapezium repair. 6. Right knee replacement. 7. Cataract surgery. 8. History of lumpectomy. 9. History of neck abscess drained. 10. Wrist surgery. 11. Teeth extraction. 12. Hemorrhoidectomy. HOME MEDICATIONS Include: 1. Vitamin D 50,000 units weekly. 2. Guaifenesin 600 mg b.i.d. 3. Atorvastatin 10 mg h.s. 4. Lisinopril 2.5 mg daily. 5. Singulair 10 mg daily. 6. Hydrocodone acetaminophen one tablet q.6 h. as needed for pain. 7. Aldactone 12.5 mg daily. 8. Omeprazole 20 mg b.i.d. 9. Pantoprazole 40 mg daily. 10. Roflumilast 500 mg daily. 11. Albuterol ipratropium q.i.d. 12. Pulmicort q.12 h. 13. Perforomist 2 mL nebulized b.i.d. 14. Hydrocortisone two tablets t.i.d. for one day; one tablet t.i.d. for 3 days; and one tablet b.i.d. for 3 days; one-half tablet b.i.d. for 14 days with 5 refills. Unit #: [id number] #: [id number] Patient: BERENICE MUÑIZ 15. Tamsulosin 0.4 mg daily. 16. Gabapentin 300 mg b.i.d. 17. Bupropion 150 mg b.i.d. 18. Celexa 20 mg daily. 19. Zofran 4 mg as needed for nausea. 20. Lidocaine patch 5 mg q.24 h. p.r.n. pain. 21. Metoprolol 25 mg b.i.d. 22. Docusate 100 mg daily. 23. Lasix 20 mg daily. 24. Flexeril 10 mg b.i.d. 25. Ergocalciferol 50,000 units on Tuesday. SOCIAL HISTORY Patient smoked, quit about 2 or 3 years. No alcohol, no polysubstance use. FAMILY HISTORY Sister and brother with lung disease. REVIEW OF SYSTEMS Positive for cough productive of green sputum, dizziness, fatigue, wobbliness, difficulty walking, presyncopal weakness whenever patient stands up. She denies any itching, rashes, dysuria, nausea, vomiting or diarrhea. Otherwise, a 12-point review of systems is negative as mentioned. PHYSICAL EXAMINATION VITAL SIGNS: T. current 98.1, pulse 107, respiratory rate 16, blood pressure 99/71. In's and Out's not recorded. HEENT: Extraocular movements are intact. NECK: There is some mild accessory muscle use. Mild JVD. BACK: The patient has significant kyphosis. LUNGS: Diffuse rhonchi bilaterally. HEART: Regular rate, no gallop. ABDOMEN: Soft, nontender, nondistended. EXTREMITIES: No evidence of edema. DIAGNOSTIC STUDIES LABORATORY: Cortisol is 8. Urinalysis negative. BNP 63. White count 10.9, hemoglobin 9.2, platelets 212. Basic metabolic significant for BUN 23, creatinine 1.0. Otherwise, within normal limits. CARDIOVASCULAR: EKG shows occasional PVCs. ASSESSMENT AND PLAN 1. Adrenal insufficiency. The patient may not be able to go down to 10 mg t.i.d. hydrocortisone; therefore, we are going to ask Dr. Salazar to see her and see what we can set her up on. 2. Check procalcitonin. 3. Continue nebs. 4. See if patient has any evidence of an acute exacerbation. Will get a sputum culture. Dictated by Winston Bernal M.D. Unit #: [id number] #: [id number] Patient: BERENICE MUÑIZ SARHAI/eliza TD: 02/21/2017 21:23 JOB #: [id number] HISTORY AND PHYSICAL Page 1 of 1 X Adan Bernal MD X HISTORY AND PHYSICAL
--- NOTE | ~2017-02-20 | DS ---
Unit #: [id number] #: [id number] Patient: BERENICE MUÑIZ [id number] [facility]. [place], [place] [address] [id number] I MR#: [id number] NAME: BERENICE MUÑIZ. ROOM: 332 Age: 71 Sex: F Admission Date: 02/20/2017 : 1945 Discharge Date: 02/24/2017 Attending Physician: Mark Dominguez M.D. Primary Care Physician: Christine Greenfield A.P.R.N. DISCHARGE SUMMARY DISCHARGE DIAGNOSES 1. Adrenal insufficiency. 2. Congestive heart failure. 3. Severe chronic obstructive pulmonary disease. 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 HISTORY OF PRESENT ILLNESS This is a pleasant 71-year-old lady with a history of very severe COPD as well as kyphosis, scoliosis, recently discharged, COPD exacerbation, acute on chronic renal insufficiency. The patient was home on prednisone slow taper. The patient presented with history of worsening dizziness approximately 24 hours after going home, low blood pressure, weakness in her legs, worsening shortness of air. There was cough, production of green sputum but there is no fever, no chills, no nausea, no vomiting or diarrhea. The patient was admitted for possible adrenal presyncope and adrenal insufficiency. HOSPITAL COURSE Dr. Salazar was called to assist with possible steroid induced adrenal insufficiency. The patient was taken off of her diuretic. She was given a liter of normal saline and the patient was placed on prednisone 5 mg in the morning and 2.5 mg at night. She was restarted on her diuretics and was discharged to home on hospital day three. The patient was continued on her usual home medications. On discharge, we are going to restart some of her diuretics and she is going to follow up with us in one week in the office to ensure the patient has not become dehydrated once more. DISCHARGE MEDICATIONS 1. Combivent inhaler four times a day as needed. 2. Prednisone 5 mg in the morning, 2.5 mg every evening. 3. Lasix 40 mg b.i.d. 4. Guaifenesin 600 mg b.i.d. 5. Atorvastatin 10 mg at bedtime. 6. Lisinopril 2.5 mg daily. 7. Singulair 10 mg daily. 8. Hydrocodone/acetaminophen one tablet q.6 hours p.r.n. pain. 9. Aldactone 12.5 mg p.o. daily. 10. Esomeprazole 20 mg daily. 11. Pantoprazole 40 mg daily. 12. Roflumilast 500 mcg daily. 13. Cyclobenzaprine 10 mg b.i.d. as needed for muscle spasms. 14. Vitamin D 50,000 units weekly. Unit #: [id number] #: [id number] Patient: BERENICE MUÑIZ 15. Gabapentin 300 mg p.o. b.i.d. 16. Celexa 20 mg daily. 17. Metoprolol 25 mg p.o. b.i.d. 18. Bupropion XL 150 mg q.24 hours. 19. Lidoderm patch daily. Remove every 12 hours. 20. Pulmicort 0.5 mg q.12 hours. 21. Perforomist neb q.12 hours. 22. Tamsulosin 0.4 mg daily. 23. Colace 100 mg p.o. daily. Followup is with Dr. Salazar in three to four weeks and follow up with our office in one week. Dictated by... Verena Duval/davy TD: 02/25/2017 09:47 JOB #: [id number] DISCHARGE SUMMARY Page 1 of 1 X Adan Bernal MD X DISCHARGE SUMMARY
--- NOTE | ~2017-02-20 | CR72 ---
[facility] A Service of [facility] & [facility] RADIOLOGY TEXT RESULTS PATIENT: BERENICE MUÑIZ LOCATION: [facility] 332-01 : [birth year] UNIT #: [id number] AGE: [address]: Mark Dominguez MD SEX: F ORDER DR: [id number] [facility] [address] [place], [place] [address] [id number] I MR#: [id number] Acc #: [id number] NAME: BERENICE MUÑIZ. : 1945 SEX: F STUDY DATE/TIME: 02/20/2017 20:58 UNIT: CEDOF ROOM: 51457 STUDY DESCRIPTION: CR Chest Single View Portable Attending Physician: Mark Dominguez M.D. Ordering Physician: Christine Velazquez M.D. Primary Care Physician: Christine Greenfield A.P.R.N. MEDICAL IMAGING REPORT This report is preliminary unless electronic signature is present EXAM Portable chest HISTORY Shortness of air for 3 days. FINDINGS The cardiac size and pulmonary vascularity are normal. Small hiatal hernia. Bilateral ryew-ux-hvqmpdhy interstitial prominence corresponds to similar findings on CT 01/29/2017, suggesting interstitial scarring. Small calcified right hilar nodes. Old healed fracture mid shaft left clavicle. IMPRESSION 1. No acute findings. 2. Small hiatal hernia. 3. Mild probable chronic interstitial scarring in both lungs. Dictated by... Ankit Wan M.D. THIS IS AN ELECTRONICALLY VERIFIED REPORT Ankit Wan M.D. at 02/21/2017 11:08 AM DUARTE/audrey TD: 02/21/2017 08:15 JOB #: [id number] MEDICAL IMAGING REPORT Page 1 of 1 COPY
--- NOTE | ~2017-02-20 | EKG ---
PATIENT: BERENICE MUÑIZ UNIT #: [id number] Ventricular Rate: 86 BPM Atrial Rate: 86 BPM P-R Interval: 148 ms QRS Duration: 90 ms Q-T Interval: 382 ms QTC Calculation(Bezet): 457 ms P [place]: 10 degrees Calculated R [place]: -5 degrees Calculated T [place]: 49 degrees Diagnosis Line: Sinus rhythm with occasional Premature ventricular Diagnosis Line: complexes Diagnosis Line: Otherwise normal ECG Diagnosis Line: When compared with ECG of 28-JAN-2017 23:16, Diagnosis Line: Premature ventricular complexes are now Present Diagnosis Line: Confirmed by UMAIR TIRADO MD ([id number]) on 02/20/2017 Diagnosis Line: 10:06:12 PM INTERPRETING MD: CELESTINO KELSEY
--- NOTE | ~2017-02-20 | CO ---
Unit #: [id number] #: [id number] Patient: BERENICE MUÑIZ [id number] [facility]. [place], [place] [address] [id number] I MR#: [id number] NAME: BERENICE MUÑIZ. ROOM: [facility] Age: 71 Sex: F Admission Date: 02/20/2017 : 1945 Attending Physician: Mark Dominguez M.D. Primary Care Physician: Christine Greenfield A.P.R.N. Consultation Date: 02/22/2017 CONSULTATION REPORT REASON FOR CONSULT Adrenal insufficiency. HISTORY OF PRESENT ILLNESS Ms. Camilla Simmons is a 71-year-old female, who looks older than her stated age; has history of COPD; chronic respiratory failure; chronic use of steroids, was gradually tapered off; adrenal insufficiency. She came to the hospital with worsening of dizziness, fatigue, low blood pressure. She was admitted with the possible adrenal insufficiency. On admission, she was hypotensive. She was started on Solu-Cortef. She is feeling much better. PAST MEDICAL HISTORY Significant for the chronic respiratory failure, chronic steroid dependence and use, back surgery. MEDICATIONS Home medication list is reviewed. Current medication list is reviewed. SOCIAL HISTORY Used to smoke, quit 2 to 3 years ago. No alcohol. FAMILY HISTORY Remarkable for lung disease. REVIEW OF SYSTEMS Remarkable for shortness of air, dizziness, fatigue, weakness. PHYSICAL EXAMINATION GENERAL: She is awake, alert, oriented to time, place, and person. VITAL SIGNS: Stable. She is afebrile, temperature 97.9, pulse 106, blood pressure is 123/72. HEENT: EOMI. Pupils equally reactive to light. NECK: Supple. No thyromegaly noted. CHEST: Decreased air entry with bilateral wheezing. CVS: Irregular rhythm. ABDOMEN: Soft, nontender. Bowel sounds positive. EXTREMITIES: No ulcers noted. DIAGNOSTIC STUDIES LABORATORY RESULTS: Reviewed. Her ACTH stimulation test with cortisol level of 1, which increased to 9 after the cosyntropin test. ASSESSMENT Unit #: [id number] #: [id number] Patient: BERENICE MUÑIZ Adrenal insufficiency secondary to the prolonged use of the steroids. PLAN To start the patient on prednisone 5 mg in the morning and 2.5 in the evening. Discontinue Solu-Cortef. Continue to monitor the patient clinically and monitor blood pressure. Thanks again for consultation. Note I discussed about the patient at length with her granddaughter, Abby. Dictated by... Angelique Salazar M.D. SARAH/merrick TD: 02/23/2017 04:41 JOB #: [id number] CONSULTATION REPORT Page 1 of 1 X Angelique Salazar MD X CONSULTATION REPORT
--- NOTE | ~2017-02-20 | CT71 ---
[facility] A Service of [facility] & [facility] RADIOLOGY TEXT RESULTS PATIENT: BERENICE MUÑIZ LOCATION: [facility] 332-01 : [birth year] UNIT #: [id number] AGE: [address]: Mark Dominguez MD SEX: F ORDER DR: [id number] [facility] [address] [place], [place] [address] [id number] I MR#: [id number] Acc #: [id number] NAME: BERENICE MUÑIZ. : 1945 SEX: F STUDY DATE/TIME: 02/20/2017 20:21 UNIT: CEDOF ROOM: 37790 STUDY DESCRIPTION: CT Head Wo Contrast Attending Physician: Mark Dominguez M.D. Ordering Physician: Christine Velazquez M.D. Primary Care Physician: Christine Greenfield A.P.R.N. MEDICAL IMAGING REPORT This report is preliminary unless electronic signature is present EXAM CT head without contrast dated 02/20/2017. COMPARISON CT head without contrast dated 08/22/2016. HISTORY Dizziness, slurred speech and confusion. It started on Tuesday. Patient also has blurred vision. This CT exam was performed with one or more of the following radiation dose reduction techniques: automatic exposure control, adjustment of mA and/or kV according to patient size, and iterative reconstruction. FINDINGS CT of the head was obtained without contrast in the axial plane. S-shaped nasal septal deviation is noted with a prominent left-sided component. Paranasal sinuses are well-aerated. Mastoid air cells are unremarkable except for mild right mastoid tip mucosal thickening. Motion artifact limits evaluation. Status post bilateral cataract surgery. IMPRESSION 1. No demonstrable acute intracranial abnormality is seen. 2. Motion artifact limits evaluation. 3. There is persistent clinical concern for acute stroke, MRI can be considered for further characterization. Dictated by... Nadine Winters M.D. THIS IS AN ELECTRONICALLY VERIFIED REPORT Nadine Winters M.D. at 02/21/2017 1:51 PM CPR/dj [facility] A Service of [facility] & [facility] RADIOLOGY TEXT RESULTS PATIENT: BERENICE MUÑIZ LOCATION: [facility] [address] [facility] [id number] : [birth year] UNIT #: [id number] AGE: [address]: Mark Dominguez MD SEX: F ORDER DR: TD: 02/21/2017 08:02 JOB #: [id number] MEDICAL IMAGING REPORT Page 1 of 1 COPY
[2017-02-20 19:18] LABS: BASOPHIL% 0.1 % (0-2.5); EOSINOPHIL# 0.1 X10e3 (0-0.7); EOSINOPHIL% 0.8 % (0.0-7.0); HEMATOCRIT 28.1 % (35.0-45.0); HEMOGLOBIN 9.2 gm/dL (12.0-16.0); LYMPHOCYTE# 1.2 X10e3 (1.0-3.5); LYMPHOCYTE% 11.2 % (17.0-45.0); MEAN CELL VOLUME 88.1 FL (83-96); MEAN CORPUSCULAR HEMOGLOBIN 28.9 PG (28-34); MEAN CORPUSCULAR HGB CONC 32.8 g/dL (30-36); MEAN PLATELET VOLUME 7.2 FL (6.5-11.5); MONOCYTE# 0.8 X10e3 (0-1.0); MONOCYTE% 7.5 % (3.0-12.0); NEUTROPHIL# 8.8 X10e3 (1.5-7.1); NEUTROPHIL% 80.4 % (40-75); PLATELET COUNT 212 X10e3 (140-420); RED BLOOD COUNT 3.19 X10e (3.90-5.30); WHITE BLOOD COUNT 10.9 X10e3 (4.0-10.5)
[2017-02-20 19:19] LABS: DIFF IND NO
[~2017-02-20 19:19] MED LIST changes: +HYDROCORTISONE20 MG PO
[2017-02-20 19:42] LABS: ALBUMIN SERUM 3.5 g/dL (3.5-5.0); BILIRUBIN, DIRECT 0.1 mg/dL (0.0-0.2); BILIRUBIN,INDIRECT 0.4 mg/dL (0.0-0.9); BILIRUBIN,TOTAL 0.5 mg/dL (0.2-2.0); CALCIUM SERUM 8.9 mg/dL (8.4-10.2); GLOM FILT RATE Estimated 57.5 mL/min (>60); PROTEIN TOTAL SERUM 6.6 g/dL (6.0-8.3)
[2017-02-20 19:51] LABS: POC - CKMB 1.2 ng/mL (0.0-7.9); POC - TROPONIN <0.05 ng/mL (<=0.05)
[2017-02-20 20:19] LABS: URINE SOURCE CLEAN CATCH
[2017-02-20 20:26] LABS: URINE APPEARANCE CLEAR; URINE BILIRUBIN NEG (NEG); URINE BLOOD NEG (NEG); URINE COLOR YELLOW; URINE GLUCOSE NEG (NEG); URINE KETONE NEG (NEG); URINE LEUKOCYTE ESTERASE NEG (NEG); URINE NITRATE NEG (NEG); URINE PH 6.5 (5-8); URINE PROTEIN NEG (NEG); URINE SPECIFIC GRAVITY 1.005 (1.003-1.035); URINE UROBILINOGEN 0.2 MG/DL (NEG)
[2017-02-20 20:38] LABS: CULTURE INDICATED? NO
[2017-02-20] MEDS ORDERED: LASIX PO (23:04)
[2017-02-20] MEDS ORDERED: NEXIUM 24HR20 M1 PO (23:05)
[2017-02-20] MEDS ORDERED: VITAMIN D10000 UNIT PO (23:08)
[2017-02-22 06:37] LABS: BASOPHIL% 0.2 % (0-2.5); EOSINOPHIL% 0.1 % (0.0-7.0); HEMATOCRIT 26.1 % (35.0-45.0); HEMOGLOBIN 8.5 gm/dL (12.0-16.0); LYMPHOCYTE# 0.6 X10e3 (1.0-3.5); LYMPHOCYTE% 10.3 % (17.0-45.0); MEAN CELL VOLUME 86.8 FL (83-96); MEAN CORPUSCULAR HEMOGLOBIN 28.2 PG (28-34); MEAN CORPUSCULAR HGB CONC 32.4 g/dL (30-36); MEAN PLATELET VOLUME 7.4 FL (6.5-11.5); MONOCYTE# 0.4 X10e3 (0-1.0); NEUTROPHIL# 5.1 X10e3 (1.5-7.1); NEUTROPHIL% 83.4 % (40-75); PLATELET COUNT 263 X10e3 (140-420); RED BLOOD COUNT 3.01 X10e (3.90-5.30); RED CELL DISTRIBUTION WIDTH 16.8 % (11.0-15.5); WHITE BLOOD COUNT 6.1 X10e3 (4.0-10.5)
[2017-02-22 06:44] LABS: DIFF IND NO
[2017-02-22 07:26] LABS: CALCIUM SERUM 8.8 mg/dL (8.4-10.2); CREATININE SERUM 0.5 mg/dL (0.6-1.4); GLOM FILT RATE Estimated 98.8 mL/min (>60); MAGNESIUM 1.9 mg/dL (1.6-3.0); PHOSPHOROUS 3.8 mg/dL (2.5-4.6); POTASSIUM 3.8 mmol/L (3.5-5.1)
[2017-02-23 07:28] LABS: HEMATOCRIT 25.5 % (35.0-45.0); HEMOGLOBIN 8.4 gm/dL (12.0-16.0); MEAN CELL VOLUME 87.5 FL (83-96); MEAN CORPUSCULAR HEMOGLOBIN 28.8 PG (28-34); MEAN PLATELET VOLUME 6.9 FL (6.5-11.5); RED BLOOD COUNT 2.92 X10e (3.90-5.30); RED CELL DISTRIBUTION WIDTH 16.7 % (11.0-15.5); WHITE BLOOD COUNT 6.5 X10e3 (4.0-10.5)
[2017-02-23 08:24] LABS: CALCIUM SERUM 8.6 mg/dL (8.4-10.2); CREATININE SERUM 0.5 mg/dL (0.6-1.4); GLOM FILT RATE Estimated 98.8 mL/min (>60); MAGNESIUM 1.9 mg/dL (1.6-3.0); PHOSPHOROUS 3.2 mg/dL (2.5-4.6); POTASSIUM 3.8 mmol/L (3.5-5.1)
[2017-02-24 06:37] LABS: CALCIUM SERUM 8.5 mg/dL (8.4-10.2); CREATININE SERUM 0.5 mg/dL (0.6-1.4); GLOM FILT RATE Estimated 98.8 mL/min (>60); MAGNESIUM 1.8 mg/dL (1.6-3.0); POTASSIUM 3.7 mmol/L (3.5-5.1)
[2017-02-24] MEDS ORDERED: COMBIVENT MININEB INH (20:20)
[2017-02-24] MEDS ORDERED: PREDNISONE5 M1 PO (20:21)
[2017-02-24] MEDS ORDERED: PREDNISONE2.5 MG PO (20:21)
[2017-02-24] MEDS ORDERED: COMBIVENT RESPIM4 GM INH (20:23)
[2017-07-30] MEDS ORDERED: PULMICORT0.25 MG/2 INH (21:14)
[2017-07-30] MEDS ORDERED: K-DUR20 ME1 PO (21:15)
[2017-07-30] MEDS ORDERED: VITAMIN D350000 UNIT PO (21:17)
[2017-07-30] MEDS ORDERED: FUROSEMIDE40 MG PO (21:18)
[2017-07-30] MEDS ORDERED: TUDORZA PRESS400 MCG INH (21:19)
[2017-07-30] MEDS ORDERED: DALIRESP500 MCG PO (21:19)
[2017-07-30] MEDS ORDERED: ATORVASTATIN CA10 MG PO (21:20)
[2017-07-30] MEDS ORDERED: WELLBUTRIN XL150 M2 (21:21)
[2017-07-30] MEDS ORDERED: FLEXERIL10 MG PO (21:22)
[2017-07-30] MEDS ORDERED: CELEXA20 MG PO (21:22)
[2017-07-30] MEDS ORDERED: DOCUSATE SODIU100 MG PO (21:23)
[2017-07-30] MEDS ORDERED: NEURONTIN300 MG PO (21:25)
[2017-07-30] MEDS ORDERED: HYDROCODON-ACE1 EAC5 PO (21:27)
[2017-07-30] MEDS ORDERED: LIDODERM1 EACH TD (21:29)
[2017-07-30] MEDS ORDERED: LOPRESSOR PO (21:30)
[2017-07-30] MEDS ORDERED: SINGULAIR PO (21:31)
[2017-07-30] MEDS ORDERED: MUCINEX1200 MG PO (21:32)
[2017-07-30] MEDS ORDERED: PROTONIX40 M1 PO (21:33)
[2017-07-30] MEDS ORDERED: ZOFRAN ODT4 M1 PO (21:33)
[2017-07-30] MEDS ORDERED: FELDENE20 MG PO (21:34)
[2017-07-30] MEDS ORDERED: FLOMAX0.4 M1 DOB (21:34)
[2017-07-30] MEDS ORDERED: PREDNISONE10 MG PO (21:40)
[2017-07-30] MEDS ORDERED: PROAIR RESPICL90 MCG (21:42)
[2017-07-30] MEDS ORDERED: PRILOSEC PO (21:43)
== END 2017-02-24 22:00 | disposition home health service (06) | DRG 644 ==
LOC: CED 19:19 → CEDOF 22:45 → C3A PCU 02-21 08:43
PROVIDERS: Emergency Medicine; Internal Medicine Pulmonary Disease
DX: E27.3 Drug-induced adrenocortical insufficiency (principal); I50.42 Chronic combined systolic (congestive) and diastolic (congestive) heart failure; J96.10 Chronic respiratory failure, unspecified whether with hypoxia or hypercapnia; I11.0 Hypertensive heart disease with heart failure; T38.0X5A Adverse effect of glucocorticoids and synthetic analogues, initial encounter; Z90.710 Acquired absence of both cervix and uterus; Z96.651 Presence of right artificial knee joint; Z98.49 Cataract extraction status, unspecified eye; Z87.891 Personal history of nicotine dependence; Z79.52 Long term (current) use of systemic steroids
CPT/HCPCS: 36415; 70450; 71010; 80048; 80076; 81003; 82308; 82533; 82553; 82947; 83735; 83880; 84100; 84484; 85025; 85027; 87070; 87205; 93005; 94640; 94760; 99285; J1650; J1720